=== PATIENT | female | born 1950 | race Hispanic/Latino ===

== ENCOUNTER 2017-10-08 05:39 | Day surgery (SDC) | payer MEDICARE ==
[2017-10-02 13:05] VITALS: BMI 20.5
--- NOTE | 2017-10-02 15:26 | HP ---
HISTORY OF PRESENT ILLNESS: A 67-year-old female presents to [facility] for epigastric pain, back radiation, and nausea. She has been experiencing this intermittently, not related to acti vity. CAT scan of abdomen and pelvis revealed gallstones. CBC, comprehensive metabolic profile was unremarkable with normal liver function tests. The patient reports for definitive resolution of her complaints. She is followed by Dr. Lester. PAST MEDICAL HISTORY: Hypertension, GERD, hypothyroidism, chronic kidney disease, GFR 21, stage 4, f ollowed by Dr. Weaver for chronic nephrolithiasis. PAST SURGICAL HISTORY: On 01/18/2016, echocardiogram, 65%-70% cardiac ejection fraction, normal PA p ressures, grade I diastolic dysfunction, mild aortic insufficiency and trace pulmonic insufficiency. Cardiac catheterization 01/18/2016, successful stenting of the mid LAD. The patient on 06/27/2017, by Dr. Jack, had upper endoscopy with biopsies negative for H. pylori, no evidence of sprue. On , cystoscopy, ureteral stents for nonobstructing renal lithiasis with basket extraction of sto ne fragments. On 09/08/2014, Dr. 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 PAST MEDICAL HISTORY: As noted above, chronic kidney disease, history of thoracoabdominal aneurysm r epair, hypertension, appendectomy, chronic renal disease followed by Dr. Weaver. Carpal tunnel. TOBACCO: None. ALCOHOL: None. ALLERGIES: None. MEDICATIONS: Protonix 40 mg a day, atorvastatin 20 mg at bedtime, Calcitriol daily, ferrous sulfate 325 daily, Namenda daily, Plavix daily. REVIEW OF SYSTEMS: Ten point noncontributory. PHYSICAL EXAMINATION: VITAL SIGNS: 110 pounds, 61 inches, 155/60, 90 heart rate, 98.6 degrees. LUNGS: Clear to auscultation. CARDIAC: Regular rate and rhythm without murmur or gallop. ABDOMEN: Soft, nontender except in her epigastric right upper quadrant where she has mild tenderness to deep palpation. Thoracoabdominal scar from thoracoabdominal aneurysm repair, right lower quadran t appendectomy scar, oblique lateral lower abdomen. EXTREMITIES: Unremarkable. ASSESSMENT AND PLAN: 1. Symptomatic cholelithiasis. Recommend laparoscopic video cholecystectomy. Risks and benefits ex plained. She consents. 2. Chronic kidney disease, followed by Dr. Weaver, stage 4. 3. Thoracoabdominal aneurysm repair in the past. 4. Hypertension. ADDENDUM: I spoke to Dr. Dyllan Pond regarding patient's 01/18/2016, normal echocardiogram and cardiac catheterization with a mid LAD Synergy drug-eluting stent placement and patient can be taken off Christian vix if necessary, but my plan is to leave her on Plavix. Dr. Pond stated that we could proceed with l aparoscopic cholecystectomy without further cardiac evaluation. He will see her per her routine foll owup and as needed.
[2017-10-08] MEDS ORDERED: Ketorolac Tromethamine 30 MG/ML VIAL ONE (06:19)
[2017-10-08] MEDS ORDERED: CEFAZOLIN/Water 2 GM/20 ML SYRINGE ONE (06:19)
[2017-10-08 06:38] LABS: #Eosinphils 0.3 thou/uL (0.0-0.7); #Lymphocytes 1.3 thou/uL (1.20-3.40); #Monocytes 0.6 thou/uL (0.11-0.59); %Basophils 0.4 % (0.0-1.0); %Lymphocytes 14.5 % (21.0-51.0); %Monocytes 6.1 % (0.0-10.0); Red Blood Cell (RBC) Count 3.39 mill/uL (4.20-5.40); White Blood Cell (WBC) Count 9.1 thou/uL (4.8-10.8)
[2017-10-08] MEDS ORDERED: Fentanyl 100 MCG/2 ML VIAL ONE ×2 (06:38)
[2017-10-08 06:52] LABS: Anion Gap 15 mmol/L (10-20); BUN (Urea Nitrogen) 42 mg/dL (9.8-20.1); Calc. Creatinine Clearance 14 mL/min (70-130); Calcium 9.4 mg/dL (7.8-10.44); Carbon Dioxide 25 mmol/L (23-31); Chloride 105 mmol/L (98-107); Estimated GFR-MDRD 17
[2017-10-08] MEDS ORDERED: Bupivacaine/Epinephrine 0.25% 30 ML VIAL ONE (06:53)
[2017-10-08] MEDS ORDERED: SUGAMMADEX SODIUM 200 MG/2 ML VIAL ONE (08:01)
[2017-10-08] MEDS ORDERED: PHENYLEPHRINE-NS 100 MCG/ML 10 ML SYRINGE ONE (08:59)
[2017-10-08] MEDS ORDERED: Ondansetron HCl/PF 4 MG/2 ML Vial ONE (08:59)
[2017-10-08] MEDS ORDERED: Propofol 200 MG/20 ML VIAL ONE (08:59)
[2017-10-08] MEDS ORDERED: Lidocaine 1% PF 5 ML VIAL ONE (08:59)
[2017-10-08] MEDS ORDERED: ePHEDrine/0.9% NaCl/PF SYRINGE 50 mg/10 ml ONE (08:59)
[2017-10-08] MEDS ORDERED: Dexamethasone 20 MG/5 ML VIAL ONE (08:59)
--- NOTE | 2017-10-08 09:20 | OP ---
DATE OF OPERATION: 10/08/2017 PREOPERATIVE DIAGNOSES: Chronic cholecystitis, cholelithiasis, chronic kidney disease, history of th oracoabdominal aneurysm repair. POSTOPERATIVE DIAGNOSIS: Chronic cholecystitis, cholelithiasis, chronic kidney disease, history of t horacoabdominal aneurysm repair. PROCEDURE: Laparoscopic video cholecystectomy. SURGEON: Dr. Cheo Srivastava ANESTHESIA: General. Local 0.5% Marcaine with epinephrine, 30 mL. PROCEDURE: The patient was taken to the operating room where under general anesthesia, abdomen was p repared with ChloraPrep, draped in routine fashion. Local anesthetic infiltrated into skin and subcu taneous tissue about the operative sites. Infraumbilical incision made and pneumoperitoneum to 15 mm Hg obtained with the Veress needle, replacing it with a 5 port and video laparoscope inserted. Right subxiphoid incision made and an 11 port placed. Right subcostal incision made mid clavicular anteri or axillary lines and 5 ports placed. Liver appeared to be normal grossly. Abdominal cavity was nor mal. No significant adhesions. Fundus of gallbladder grasped and reflected cephalad. Infundibulum grasped and reflected laterally. Cystic artery and duct dissected free. Critical view obtained with pericholecystic dissection 2/3 cystic plate, cystic artery and duct doubly clipped proximally and di vided and gallbladder dissected free from the liver bed obtaining good hemostasis prior to division o f final peritoneal attachments. Gallbladder and contents removed and submitted to Pathology. All sk in incisions approximated with interrupted sutures of 4-0 Monocryl after pneumoperitoneum and irrigan t evacuated, and good hemostasis ensured.
== END 2017-10-08 09:54 | disposition home or self-care (01) ==
LOC: SDC 05:39
PROVIDERS: ATTEND Specialist
PROC: 0FT44ZZ Resection of Gallbladder, Percutaneous Endoscopic Approach (ICD-10-PCS; principal; 2017-10-08)
DX: K80.10 Calculus of gallbladder with chronic cholecystitis without obstruction (principal); N18.9 Chronic kidney disease, unspecified; K21.9 Gastro-esophageal reflux disease without esophagitis; E03.9 Hypothyroidism, unspecified; I10 Essential (primary) hypertension; Z79.899 Other long term (current) drug therapy; Z90.49 Acquired absence of other specified parts of digestive tract; Z98.890 Other specified postprocedural states
CPT/HCPCS: 36415; 80048; 85025; 88304; J0131; J1100; J1885; J2001; J2405; J2704; J3010

== ENCOUNTER 2018-01-31 15:09 | Inpatient (IN) | payer MEDICARE ==
[2018-01-31 16:19] LABS: #Eosinphils 0.1 thou/uL (0.0-0.7); #Lymphocytes 1.2 thou/uL (1.20-3.40); #Monocytes 0.5 thou/uL (0.11-0.59); #Neutrophils 5.8 thou/uL (1.40-6.50); %Basophils 0.6 % (0.0-1.0); %Eosinophils 1.1 % (0.0-10.0); %Lymphocytes 15.9 % (21.0-51.0); %Monocytes 6.5 % (0.0-10.0); %Neutrophils 75.9 % (42.0-75.0); Hemoglobin 8.8 g/dL (12.0-16.0); Mean Corpuscular HGB CONC 32.9 g/dL (32.0-36.0); Mean Corpuscular Hemoglobin 30.3 pg (27.0-31.0); Mean Corpuscular Volume 92.3 fl (81.0-99.0); Mean Platelet Volume 10.8 fL (7.4-10.4); Platelet Count 170 thou/uL (130-400); RBC Distribution Width 11.9 % (11.5-14.5); Red Blood Cell (RBC) Count 2.89 mill/uL (4.20-5.40); White Blood Cell (WBC) Count 7.6 thou/uL (4.8-10.8)
[2018-01-31 16:25] LABS: ALT (SGPT) 12 U/L (8-55); AST (SGOT) 24 U/L (5-34); Alkaline Phosphatase 79 U/L (40-150); Anion Gap 17 mmol/L (10-20); BUN (Urea Nitrogen) 60 mg/dL (9.8-20.1); Bilirubin, Total 0.3 mg/dL (0.2-1.2); Calc. Creatinine Clearance 0 mL/min (70-130); Calcium 9.2 mg/dL (7.8-10.44); Carbon Dioxide 22 mmol/L (23-31); Chloride 105 mmol/L (98-107); Estimated GFR-MDRD 12; Globulin 3.4 g/dL (2.4-3.5); Glucose 83 mg/dL (80-115); Protein, Total 7.4 g/dL (6.0-8.3); Sodium 141 mmol/L (136-145)
[2018-01-31 16:30] LABS: CKMB 1.9 ng/mL (0-6.6); Troponin I 0.022 ng/mL (< 0.028)
[2018-01-31] MEDS ORDERED: Potassium Chloride 20 MEQ TAB ONE (16:58)
[2018-01-31 17:01] LABS: Bilirubin Negative (Negative); Blood, Urine Trace (Negative); Clarity CLEAR (Clear); Glucose, Urine (Dipstick) Negative (Negative); Leukocyte Negative (Negative); Nitrite Negative (Negative); Protein, Urine (Dipstick) 300 mg/dL (Neg-Trace); Specific Gravity, Urine 1.014 (1.002-1.036); Urobilinogen 0.2 mg/dL (0.2-1.0); pH, Urine 5.5 (5.0-9.0)
[2018-01-31 17:05] LABS: Bacteria/HPF None Seen HPF (None Seen); Hyaline Casts/LPF 0-3 HYALINE CAST LPF (0-3 Hyaline); Pathc Cast-AUWi Flag 0.87 (0-2.49); Squamous Epithelial 0-3 HPF (0-3); WBC/HPF 0-3 HPF (0-3)
[2018-01-31] MEDS ORDERED: hydrALAZINE 20 MG/ML VIAL ONE (17:51)
[2018-01-31] MEDS ORDERED: Amlodipine 10 MG TAB PO SCH (18:00)
[2018-01-31 18:05] LABS: Iron 22 ug/dL (50-170); Iron Binding Capacity, Total 281 mcg/dL (265-497)
[2018-01-31] MEDS ORDERED: Ondansetron HCl/PF 4 MG/2 ML Vial IVP PRN ×2 (18:35)
[2018-01-31] MEDS ORDERED: Lorazepam 1 MG TAB PO PRN (18:35)
[2018-01-31] MEDS ORDERED: traMADol HCl 50 MG TAB PO PRN (18:35)
[2018-01-31] MEDS ORDERED: Mag-Al 1200 mg/1200 mg/30 ML UDCUP PO PRN (18:35)
[2018-01-31] MEDS ORDERED: Nitroglycerin 0.4 MG TAB (25 Tab Bottle) SL PRN (18:35)
[2018-01-31] MEDS ORDERED: Calcium Carbonate 500 MG ChewTAB PO PRN (18:35)
[2018-01-31] MEDS ORDERED: Loratadine 10 MG TAB PO PRN (18:35)
[2018-01-31] MEDS ORDERED: Diabetic Tussin 200 MG/10 ML UDCUP PO PRN (18:35)
[2018-01-31] MEDS ORDERED: Senokot 8.6 MG TAB PO PRN (18:35)
[2018-01-31] MEDS ORDERED: Benzonatate 100 MG CAP PO PRN (18:35)
[2018-01-31] MEDS ORDERED: hydrALAZINE 20 MG/ML VIAL SLOW IVP PRN (18:35)
[2018-01-31] MEDS ORDERED: Bisacodyl 5 MG TAB PO PRN (18:35)
[2018-01-31] MEDS ORDERED: cloNIDine 0.1 MG TAB PO PRN (18:35)
[2018-01-31] MEDS ORDERED: Acetaminophen 325 MG TAB PO PRN (18:35)
[2018-01-31 18:51] LABS: Vitamin B12 Greater than 2000 pg/mL (211-911)
--- NOTE | 2018-01-31 21:09 | ULT ---
RENAL ULTRASOUND: 01/31/18 CLINICAL HISTORY: Acute renal insufficiency. Bilateral culver scale and doppler color flow imaging of the kidneys performed. There is symmetric size to the kidneys bilaterally. Each approximately 8 cm in length. Kidneys demonstrate increased echogen icity which may be on the basis of chronic medical renal disease. There is focal prominence of the re nal hilum. This could be on the basis of an extrarenal pelvis or peripelvic cyst. No discrete renal l esion identified. There is no significant abnormality of the urinary bladder. Bilateral ureteral jets are demonstrated. IMPRESSION: Focal prominence of the left renal hilum may relate to extrarenal pelvis or peripelvic cysts. Otherwi se, no significant hydronephrosis or discrete renal lesion. Increased echogenicity of the kidney as discussed above. POS: JESU
[2018-01-31] MEDS: Famotidine 20 MG TAB PO SCH (21:38)
[2018-01-31] MEDS: Heparin 5,000 UNITS/ML VIAL SC SCH (21:39)
[2018-01-31 21:58] LABS: Bilirubin Negative (Negative); Blood, Urine Trace (Negative); Clarity CLEAR (Clear); Glucose, Urine (Dipstick) Negative (Negative); Leukocyte Negative (Negative); Nitrite Negative (Negative); Protein, Urine (Dipstick) 100 mg/dL (Neg-Trace); Urobilinogen 0.2 mg/dL (0.2-1.0); pH, Urine 6.5 (5.0-9.0)
[2018-01-31 21:59] LABS: Bacteria/HPF None Seen HPF (None Seen); Hyaline Casts/LPF 0-3 HYALINE CAST LPF (0-3 Hyaline); Pathc Cast-AUWi Flag 0.14 (0-2.49); Squamous Epithelial None Seen HPF (0-3); WBC/HPF 0-3 HPF (0-3)
[2018-02-01 04:23] LABS: #Eosinphils 0.1 thou/uL (0.0-0.7); #Lymphocytes 1.4 thou/uL (1.20-3.40); #Monocytes 0.6 thou/uL (0.11-0.59); #Neutrophils 4.5 thou/uL (1.40-6.50); %Basophils 0.6 % (0.0-1.0); %Eosinophils 2.1 % (0.0-10.0); %Lymphocytes 20.4 % (21.0-51.0); %Monocytes 8.6 % (0.0-10.0); %Neutrophils 68.3 % (42.0-75.0); Hemoglobin 8.3 g/dL (12.0-16.0); Mean Corpuscular HGB CONC 33.5 g/dL (32.0-36.0); Mean Corpuscular Hemoglobin 30.1 pg (27.0-31.0); Mean Platelet Volume 10.4 fL (7.4-10.4); Platelet Count 159 thou/uL (130-400); RBC Distribution Width 11.7 % (11.5-14.5); Red Blood Cell (RBC) Count 2.74 mill/uL (4.20-5.40); White Blood Cell (WBC) Count 6.6 thou/uL (4.8-10.8)
[2018-02-01 05:39] LABS: Anion Gap 11 mmol/L (10-20); BUN (Urea Nitrogen) 58 mg/dL (9.8-20.1); Calc. Creatinine Clearance 12 mL/min (70-130); Calcium 8.6 mg/dL (7.8-10.44); Carbon Dioxide 24 mmol/L (23-31); Chloride 112 mmol/L (98-107); Estimated GFR-MDRD 13; Glucose 91 mg/dL (80-115); Potassium 3.3 mmol/L (3.5-5.1); Sodium 144 mmol/L (136-145)
--- NOTE | 2018-02-01 07:47 | HP ---
DATE OF ADMISSION: 01/31/2018 PRIMARY CARE PHYSICIAN: Ellen Lester in [facility]. CHIEF COMPLAINT: Abnormal labs. Sent over by her enrollment management coordinator, Dr. Weaver, for further workup. HISTORY OF PRESENTING ILLNESS: Ms. Prado is a very pleasant 67-year-old female with past medical hi story of abdominal aneurysm, status post repair, hypertension, as well as nephrolithiasis, status pos t lithotripsy and stent placement and removal, who presented to the emergency room with above-mention ed complaint. History is mainly obtained by the patient herself and her has also helped prov iding the history. Case has been discussed with the admitting ER physician as well as her nephrologi st, Dr. Weaver, over the phone. Ms. Prado reported that a few weeks ago, she noticed that she has worsening swelling of the legs. S he was seen by her primary care physician who referred her to the Nephrology. Dr. Weaver saw her week and started her on Lasix. Her swelling did get a little bit better [facility] It was noticed that her renal function has worsened over the course of the last few d ays. Her creatinine went from 2.29 in 08/2017 to 3.68 this morning. This seems to be like a gradual decline, but her GFR has dropped from 68 to 12 in the course of last 2 years. Most of the drop has happened since 11/2016. The patient herself reports poor appetite. The patient herself endorses frequent urination, weakness, tiredness, fatigue and poor appetite. She also has some abdominal pain in the right abdomen. She has history of laparoscopic cholecystectomy entered in 09/[address] Srivastava. Given history of AAA, she sought medical attention at [facility] in [place], [place]. According to her , a CT scan was done and was normal. They ac tually had a followup appointment there only yesterday. She denies any fever, chills, chest pain. S he does have some on and off chest tightness, but denies any shortness of breath or worsening edema. She denies any hematochezia or melena or hematemesis. She denies any dysuria, frequency, urgency, o r hematuria. Her labs today also have low potassium at 3.0, BUN of 60, creatinine of 3.68. Her hemoglobin is 8.8, which was 10.9 about 11 days ago. She reported that she has recently been started on folic acid and vitamin B12 by her primary care physician for this. She is otherwise hemodynamically stable and is being admitted for acute renal failure and further workup for the etiology of the same. PAST MEDICAL HISTORY: 1. History of AAA status post repair by Dr. Horn in 08/2014. 2. History of left renal stones, status post lithotripsy and stent placement and removal. 3. Gastroesophageal reflux disease. 4. Hypertension. 5. Cholecystitis status post laparoscopic cholecystectomy. PAST SURGICAL HISTORY: 1. Lithotripsy and renal stent placement and removal. 2. AAA repair. 3. Appendectomy. 4. Laparoscopic cholecystectomy. ALLERGIES: No known medication allergies. SOCIAL HISTORY: She is and lives with the family. No history of drug, tobacco or alcohol ab use. FAMILY HISTORY: Significant for massive MS in her mother who in her 60s. Father also of M I at the age of 49. REVIEW OF SYSTEMS: The following complete review of systems was negative, unless otherwise mentioned in the HPI or below: Constitutional: Weight loss or gain, ability to conduct usual activities. Sk in: Rash, itching. Eyes: Double vision, pain. ENT/Mouth: Nose bleeding, neck stiffness, pain, te nderness. Cardiovascular: Palpitations, dyspnea on exertion, orthopnea. Respiratory: Shortness of breath, wheezing, cough, hemoptysis, fever or night sweats. Gastrointestinal: Poor appetite, abdom inal pain, heartburn, nausea, vomiting, constipation, or diarrhea. Genitourinary: Urgency, frequenc y, dysuria, nocturia. Musculoskeletal: Pain, swelling. Neurologic/Psychiatric: Anxiety, depressio n. Allergy/Immunologic: Skin rash, bleeding tendency. CURRENT HOME MEDICATIONS: Include Lasix 40 mg daily, ferrous sulfate 325 mg b.i.d., Namenda 28 mg da jennyfer, Plavix 75 mg daily, amlodipine 10 mg daily, memantine unknown dose, Protonix 40 mg daily, atorva statin 20 mg daily, and calcitriol 0.25 mcg Sunday, Sunday, and Sunday. LABORATORY DATA: CBC shows WBC normal at 7.6, but 75% neutrophils. Hemoglobin 8.8, hematocrit 26.7, normal MCV, MCH and MCHC and RDW. Serum chemistry shows potassium 3, bicarbonate 22, BUN 60, creati nine 3.68 with estimated GFR of 12. Cardiac enzymes unremarkable. PHYSICAL EXAMINATION: VITAL SIGNS: Upon presentation, blood pressure 177/75, pulse of 78, respirations 16, saturating 96% on room air, temperature 97.7. GENERAL: She looks very pale, weak and tired, otherwise no acute distress. Awake, alert, oriented x 3. HEENT: Mucous membrane is moist and pink. No oropharyngeal exudate or erythema. Head is normocepha lic, atraumatic. Pupils equal, reactive to light and accommodation. Extraocular movement equal. NECK: Supple without any lymphadenopathy, JVD or bruit. CHEST: Clear to auscultation without any wheezing, rales or rhonchi. Rhythm is regular without any murmur, rubs or gallop. ABDOMEN: She is mildly tender to palpation diffusely in the abdomen. She has no guarding, rebound o r rigidity. EXTREMITIES: Show trace pitting edema bilaterally, lower extremities extending up to her mid-calf. NEUROLOGIC: Nonfocal. SKIN: Free of any rashes or bruises. I feel warm and dry to touch. PSYCHIATRIC: Normal affect. IMPRESSION AND PLAN: 1. Acute on chronic kidney disease. The patient has acute worsening of her symptoms. Upon discussi on with the enrollment management coordinator, Dr. Weaver, it was found out that recently her ANCA antibody was positive. She would need further workup. It might be hypertensive nephropathy and chronic kidney disease hima porfirio any other autoimmune diseases versus acute renal insufficiency secondary to diuretics. At this t james, we will hold the diuretics and give her some of the volume back and admit her to medical floor f or further workup. Nephrology will be consulted. We will obtain a renal ultrasound and a urinalysis . Further management per Nephrology recommendations. She may or may not need a renal biopsy. The p atient does not take any pain medications at home. She is also not on any aspirin either. 2. Uncontrolled hypertension. The patient's blood pressure has shot up to systolic 200. We will st art her on p.r.n. antihypertensives and resume her home medication of amlodipine. Further medication as per her response. 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 We will avoid diuretics becaus e of acute kidney insufficiency at this time. 3. History of nephrolithiasis. The patient's symptoms are not consistent with a renal stone. [facility], renal ultrasound has been ordered. 4. History of abdominal aortic aneurysm. The patient recently had a followup at [facility] in [place] and her CT scan was negative for any reoccurrence or any new aneurysms. 5. Deep venous thrombosis and gastrointestinal prophylaxis. 6. Chronic anemia, most likely iron deficiency versus anemia of chronic kidney disease. We will aristeo ck her iron indices as well as vitamin B12 and folic acid levels. If any of these is low, we will st art supplementing. Iron will be supplemented, the IV form if necessary. 7. Code status: FULL CODE. Discussed with the patient. 8. Add p.r.n. medication orders and continue supportive care. 9. Hypokalemia. She has received 20 mg of potassium in the emergency room, and we will recheck in t he morning. This most likely secondary to her use of Lasix. DISPOSITION: Ms. Prado is currently being admitted to medical floor for acute on chronic renal insu fficiency. Further management will depend upon her clinical course. Estimated length of stay at [facility] time is at least 2-3 midnight.
[2018-02-01] MEDS: Famotidine 20 MG TAB PO SCH (08:31)
[2018-02-01] MEDS: Heparin 5,000 UNITS/ML VIAL SC SCH (08:32)
[2018-02-01] MEDS ORDERED: Prevnar 13-Val Conj/PF 0.5 ML SYRINGE IM ONE (09:00)
[2018-02-01] MEDS ORDERED: Amlodipine 10 MG TAB PO SCH (09:00)
[2018-02-01] MEDS ORDERED: IRON SUCROSE COMPLEX 100 MG/5 ML SLOW IVP SCH (09:30)
[2018-02-01] MEDS ORDERED: Epoetin (ESRD) 20,000 UNITS/ML SC SCH (09:30)
[2018-02-01] MEDS ORDERED: Calcitriol 0.25 MCG CAP PO SCH (09:45)
[2018-02-01] MEDS ORDERED: Sodium Ferric Gluconate 250 MG, Admixture Fee 1 EACH in Sodium Chloride 0.9% 250 ML 250 ML IVPB SCH (09:45)
[2018-02-01 11:24] VITALS: BP 166/73; TEMP 98.5
[2018-02-01 11:46] LABS: INR-International Normal Ratio 1.1; Prothrombin Time 14.7 SEC (12.0-14.7)
[2018-02-01 11:47] LABS: PTT 40.6 SEC (22.9-36.1)
--- NOTE | 2018-02-01 12:08 | CON ---
DATE OF CONSULTATION: 02/01/2018 REASON FOR CONSULTATION: Proteinuria and stage 5 chronic kidney disease. HISTORY OF PRESENT ILLNESS: This is a 67-year-old female with a history of pruritic rash and a risin g creatinine. Her creatinine was normal a few years ago and has increased. The patient says swellin g is controlled. Creatinine has increased from 2 in 11/23 last year to 3.5 today. An ultrasound jorge ws scarring. The patient also has had a pruritic rash. The patient denies fever, chills, nausea, vo miting or chest pain. PAST MEDICAL AND SURGICAL HISTORY: Significant for hypertension, pruritic rash, joint pains, history of AAA repair, history of kidney stones, stent placement, hypertension, GERD, cholecystitis, appende ctomy. SOCIAL HISTORY: No tobacco, alcohol or drug use. FAMILY HISTORY: Negative for ESRD. REVIEW OF SYSTEMS: A 15-point review of systems was performed and was negative except for positives noted above. GENERAL: Weakness-. HEAD: Headache-. NECK: No swelling or lumps. NOSE: No epistaxis or discharge. EYES: No diplopia or pain. RESPIRATORY: Dyspnea-. CARDIOVASCULAR: Chest pain-. GASTROINTESTINAL: Nausea-. 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 MUSCULOSKELETAL: No joint pain. NEUROPSYCHIATIC SYSTEMS: No suicidal ideation. No ideation. SKIN: Denies any rash or ulcer. CONSTITUTIONAL: No fever or chills. HOME MEDICATIONS: List reviewed. HOSPITAL MEDICATIONS: Reviewed. ALLERGY: Reviewed. PHYSICAL EXAMINATION: GENERAL: Patient is awake, alert. VITAL SIGNS: Afebrile, pulse 75, breathing at 16, blood pressure was 148/82. GENERAL APPEARANCE AND MENTAL STATUS: Fair. HEAD/NECK: Normocephalic, atraumatic. EYES: EOMI. No deformity. EARS: Clear. No ulcers. NOSE: Intact. No lesions. MOUTH: Clear. No discharge. THROAT: Clear. No exudate. LUNGS: Clear. No crackles. CARDIAC: S1, S2. No rub. ABDOMEN: Benign. BS+. GENITALIA/RECTUM: Baig absent. BACK/EXTREMITIES: Edema 0+ Ulcer-. NEUROLOGICAL: Alert and motor intact. SKIN: Rash- Bruise- LYMPHATICS: Edema- Ulcer-. LABORATORY DATA: Show potassium 3.3, creatinine 3.5. ASSESSMENT AND RECOMMENDATIONS: 1. Acute kidney injury with chronic kidney disease stage 5, most likely due to a glomerular etiology . I will order a random urine protein creatinine ratio and a serum and urine protein electrophoresis . The patient will need a kidney biopsy. I have discussed the risks versus benefits of a kidney bio psy and they have consented. We will consult Radiology to perform a kidney biopsy. 2. Proteinuria. 3. Anemia. Workup is pending. Overall, prognosis is poor.
[2018-02-01 14:08] LABS: ANA Symphony (Qualitative) Negative (Negative); dsDNA IgG Antibody Less than 0.5 IU/mL (<10 Negative)
[2018-02-01 15:11] LABS: Creatinine, Urine 47.32 mg/dL (47-110)
[2018-02-01] MEDS ORDERED: FERROUS SULFATE PO SCH (21:00)
[2018-02-01] MEDS ORDERED: Ferrous Sulfate 325 MG TAB PO SCH (21:00)
--- NOTE | 2018-02-01 23:16 | DIS ---
DATE OF ADMISSION: 01/31/2018 DATE OF DISCHARGE: 02/01/2018 CONDITION AT THE TIME OF DISCHARGE: Stable and improved. DISCHARGE DISPOSITION: Home. PRIMARY CARE PHYSICIAN: Ellen Lester PA-C. PRIMARY SNAKER DRIVING HORSES: Dr. Weaver. DISCHARGE DIAGNOSES: 1. Acute on chronic kidney disease of unclear etiology. 2. Dementia. 3. History of abdominal aortic aneurysm status post repair in 2013. 4. History of nephrolithiasis, status post stent placement and stone removal. DISCHARGE MEDICATIONS: Remain the same as the admission medication except for the Plavix, which is i nstructed to stop for 5 to 10 days for outpatient renal biopsy. CONSULTATIONS: Inhouse Nephrology, Dr. Meneses. PROCEDURES: Renal ultrasound which is unremarkable except increased echogenicity in the left renal h ilum, which may relate to extrarenal pelvis or peripelvic cyst. HISTORY OF PRESENTING ILLNESS: Ms. Prado was admitted as a direct admit from [facility] for abnormal labs. She has known history of chronic kidney disease and was seen in the outpatient settin g for increased swelling and was started on Lasix a few days ago. For the followup appointment, when she presented she was found to have acute worsening of the kidney function with creatinine of 3.68. She was admitted for further evaluation and stabilization. She was otherwise hemodynamically stable . Please see admission history and physical for further details. HOSPITAL COURSE: Nephrology was consulted and renal ultrasound was done. Various immunological stud ies were sent including the ankle panel as well as FAVIO panel and a urine and serum protein electropho resis was also ordered. The patient's Lasix was held and was stopped and she was resuscitated with a little bit of fluid. She tolerated this very well and by the time of discharge. Her creatinine has improved a little bit to 3.55. She needs a renal biopsy which [facility] She was found to be anemic with a hemoglobin of 8.8 and serum iron indices and B12, folic acid levels were checked. She was iron deficient. She received IV iron prior to discharge as well as one dose of Epogen as this is most likely anemia of chronic kidney disease. She was seen and examined prior to discharge and is stable. PHYSICAL EXAMINATION: This morning include; VITAL SIGNS: Temperature 98.5, pulse of 70, respirations 20, saturating 96% on room air, blood press ure 166/73, no acute distress, awake, alert, and oriented x3. CHEST: Clear to auscultation bilaterally. HEART: Rate and rhythm is regular. NEUROLOGICAL: Nonfocal. At this time, I have instructed her multiple times that she is to hold her Plavix for outpatient reyna l biopsy. This will be scheduled by Dr. Weaver's office. The patient is instructed to follow up wi th them on Sunday as this is a Sunday, today. She will get her BMP checked prior to her visit with Antonietta Weaver and they will set her up with the date of the renal biopsy and follow up the lab results i n the outpatient setting. All questions were answered and discharge plan was discussed with the patient who verbalized understa nding. Discharge plan was discussed with Dr. Meneses, who also agreed with the plan. Total time spent in the discharge of this patient 32 minutes.
[2018-02-02] MEDS ORDERED: Famotidine 20 MG TAB PO SCH (09:00)
[2018-02-02] MEDS ORDERED: Cyanocobalamin (Vitamin B-12) 1,000 MCG TAB PO SCH (09:00)
[2018-02-02] MEDS ORDERED: MEMANTINE HCL PO SCH (09:00)
[2018-02-02] MEDS ORDERED: Atorvastatin Calcium 20 MG TAB PO SCH (09:00)
[2018-02-04] MEDS ORDERED: Calcitriol 0.25 MCG CAP PO SCH ×2 (09:00)
[2018-02-05 14:21] LABS: Albumin 3.1 g/dL (2.9-4.4); Alpha 1 0.3 g/dL (0.0-0.4); Alpha 2 0.9 g/dL (0.4-1.0); Gamma 0.8 g/dL (0.4-1.8); M-Spike Not Observed g/dL (Not Observed)
[2018-02-06 12:15] LABS: Protein, Urine 165.2 mg/dL (Not Estab.)
== END 2018-02-01 16:25 | disposition home or self-care (01) | DRG 683 ==
LOC: ERS 15:09 → T4-A 17:00
PROVIDERS: ADMIT Internal Medicine; ATTEND Internal Medicine
DX: N17.9 Acute kidney failure, unspecified (principal); I12.0 Hypertensive chronic kidney disease with stage 5 chronic kidney disease or end stage renal disease; F03.90 Unspecified dementia, unspecified severity, without behavioral disturbance, psychotic disturbance, mood disturbance, and anxiety; E87.6 Hypokalemia; D50.9 Iron deficiency anemia, unspecified; N18.5 Chronic kidney disease, stage 5
CPT/HCPCS: 36415; 76770; 80048; 80053; 81003; 81015; 82553; 82570; 82607; 82746; 83520; 83540; 83550; 84156; 84165; 84166; 84484; 85025; 85610; 85730; 86038; 86225; 86256; 90471; 90670; 93005; 96361; 96374; G0009; J0360; J1644; J2916; J7050; Q4081

== ENCOUNTER 2018-02-25 08:56 | Day surgery (SDC) | payer MEDICARE ==
[2018-02-11 13:28] VITALS: BMI 17.5
[2018-02-25 09:58] VITALS: BP 172/73; TEMP 97.8
== END 2018-02-25 11:15 | disposition home or self-care (01) ==
LOC: CT 08:56
PROVIDERS: ATTEND Internal Medicine Nephrology
DX: I12.9 Hypertensive chronic kidney disease with stage 1 through stage 4 chronic kidney disease, or unspecified chronic kidney disease (principal); N18.9 Chronic kidney disease, unspecified; N17.9 Acute kidney failure, unspecified; Z79.02 Long term (current) use of antithrombotics/antiplatelets; Z79.899 Other long term (current) drug therapy; Z53.9 Procedure and treatment not carried out, unspecified reason
CPT/HCPCS: 36415; 80048; 83970; 84100; 85027

== ENCOUNTER 2018-04-08 08:34 | Day surgery (SDC) | payer MEDICARE ==
[~2018-04-08 08:34] MED LIST: Prevnar 13-Val Conj/PF 0.5 ML SYRINGE IM ONE
[2018-04-08 09:08] LABS: Hemoglobin 8.8 g/dL (12.0-16.0); Mean Corpuscular HGB CONC 32.5 g/dL (32.0-36.0); Mean Corpuscular Hemoglobin 30.3 pg (27.0-31.0); Mean Corpuscular Volume 93.2 fl (81.0-99.0); Platelet Count 113 thou/uL (130-400); RBC Distribution Width 12.7 % (11.5-14.5); Red Blood Cell (RBC) Count 2.91 mill/uL (4.20-5.40); White Blood Cell (WBC) Count 10.5 thou/uL (4.8-10.8)
[2018-04-08 09:10] LABS: INR-International Normal Ratio 1.2; PTT 25.9 SEC (22.9-36.1); Prothrombin Time 15.1 SEC (12.0-14.7)
[2018-04-08 10:24] VITALS: BP 220/90; TEMP 97.4
[2018-04-08] MEDS ORDERED: Lorazepam 1 MG TAB ONE (10:39)
== END 2018-04-08 11:50 | disposition home or self-care (01) ==
LOC: CT 08:34
PROVIDERS: ATTEND Internal Medicine Nephrology
DX: I12.9 Hypertensive chronic kidney disease with stage 1 through stage 4 chronic kidney disease, or unspecified chronic kidney disease (principal); N18.4 Chronic kidney disease, stage 4 (severe); R80.9 Proteinuria, unspecified; F03.90 Unspecified dementia, unspecified severity, without behavioral disturbance, psychotic disturbance, mood disturbance, and anxiety; Z53.9 Procedure and treatment not carried out, unspecified reason
CPT/HCPCS: 85027; 85610; 85730

== ENCOUNTER 2018-04-29 08:03 | Day surgery (SDC) | payer MEDICARE ==
[2018-04-29] MEDS ORDERED: diphenhydrAMINE 25 MG CAP PO PRN (09:03)
[2018-04-29] MEDS ORDERED: Acetaminophen 500 MG TAB PO PRN (09:04)
[2018-04-29] MEDS ORDERED: diphenhydrAMINE 50 MG/ML VIAL IVP PRN (09:04)
[2018-04-29] MEDS ORDERED: Acetaminophen 500 MG TAB PO SCH (09:15)
[2018-04-29] MEDS ORDERED: SODIUM CHLORIDE 0.9% IVPB SCH ×2 (09:15)
[2018-04-29] MEDS ORDERED: RITUXIMAB IVPB SCH ×2 (09:15)
[2018-04-29] MEDS ORDERED: diphenhydrAMINE 50 MG/ML VIAL IVP SCH (09:15)
[2018-04-29] MEDS ORDERED: methylPREDNISolone Sod Succ/PF 125 MG/2 ML VIAL IVP SCH (09:15)
[2018-04-29 09:34] LABS: #Lymphocytes 0.9 thou/uL (1.20-3.40); #Monocytes 0.6 thou/uL (0.11-0.59); #Neutrophils 8.9 thou/uL (1.40-6.50); %Basophils 0.4 % (0.0-1.0); %Eosinophils 0.2 % (0.0-10.0); %Monocytes 5.5 % (0.0-10.0); %Neutrophils 84.8 % (42.0-75.0); Hemoglobin 8.3 g/dL (12.0-16.0); Mean Corpuscular HGB CONC 33.7 g/dL (32.0-36.0); Mean Corpuscular Hemoglobin 30.9 pg (27.0-31.0); Mean Corpuscular Volume 91.5 fL (78.0-98.0); Mean Platelet Volume 9.7 fL (7.4-10.4); Platelet Count 124 thou/uL (130-400); RBC Distribution Width 13.3 % (11.5-14.5); Red Blood Cell (RBC) Count 2.69 mill/uL (4.20-5.40); White Blood Cell (WBC) Count 10.5 thou/uL (4.8-10.8)
[2018-04-29 09:49] LABS: Anion Gap 17 mmol/L (10-20); BUN (Urea Nitrogen) 120 mg/dL (9.8-20.1); Calc. Creatinine Clearance 8 mL/min (70-130); Calcium 7.2 mg/dL (7.8-10.44); Carbon Dioxide 24 mmol/L (23-31); Chloride 105 mmol/L (98-107); Estimated GFR-MDRD 7; Glucose 92 mg/dL (80-115); Potassium 3.2 mmol/L (3.5-5.1); Sodium 143 mmol/L (136-145)
[2018-04-29 10:06] VITALS: BP 190/84; TEMP 98
== END 2018-04-29 13:25 | disposition home or self-care (01) ==
LOC: ONC/OP 08:03
PROVIDERS: ATTEND Internal Medicine Rheumatology
DX: I77.6 Arteritis, unspecified (principal); N18.5 Chronic kidney disease, stage 5; I12.0 Hypertensive chronic kidney disease with stage 5 chronic kidney disease or end stage renal disease; D63.1 Anemia in chronic kidney disease; Z79.1 Long term (current) use of non-steroidal anti-inflammatories (NSAID)
CPT/HCPCS: 36415; 80048; 85025; 96375; 96413; 96415; J1200; J2930; J7050; J9310

== ENCOUNTER 2018-05-13 08:56 | Day surgery (SDC) | payer MEDICARE ==
[2018-05-13] MEDS ORDERED: Acetaminophen 500 MG TAB PO PRN (09:40)
[2018-05-13] MEDS ORDERED: diphenhydrAMINE 50 MG/ML VIAL IVP PRN (09:40)
[2018-05-13] MEDS ORDERED: diphenhydrAMINE 25 MG CAP PO PRN (09:40)
[2018-05-13] MEDS ORDERED: SODIUM CHLORIDE 0.9% IVPB SCH (09:45)
[2018-05-13] MEDS ORDERED: Sodium Chloride 0.9% 1,000 ML IV SCH (09:45)
[2018-05-13] MEDS ORDERED: methylPREDNISolone Sod Succ/PF 125 MG/2 ML VIAL IVP SCH (09:45)
[2018-05-13] MEDS ORDERED: Acetaminophen 500 MG TAB PO SCH (09:45)
[2018-05-13] MEDS ORDERED: RITUXIMAB IVPB SCH (09:45)
[2018-05-13] MEDS ORDERED: diphenhydrAMINE 50 MG/ML VIAL IVP SCH (09:45)
[2018-05-13 11:30] VITALS: BP 178/80; TEMP 98.3
== END 2018-05-13 13:02 | disposition home or self-care (01) ==
LOC: ONC/OP 08:56
PROVIDERS: ATTEND Internal Medicine Rheumatology
DX: I77.6 Arteritis, unspecified (principal)
CPT/HCPCS: 96375; 96413; 96415; J1200; J2930; J7050; J9310

== ENCOUNTER 2018-05-27 15:52 | Inpatient (IN) | payer MEDICARE ==
[2018-05-27 16:32] LABS: #Lymphocytes 0.5 thou/uL (1.20-3.40); #Monocytes 0.3 thou/uL (0.11-0.59); %Eosinophils 0.3 % (0.0-10.0); %Lymphocytes 8.2 % (21.0-51.0); %Monocytes 4.7 % (0.0-10.0); %Neutrophils 86.7 % (42.0-75.0); Hemoglobin 8.3 g/dL (12.0-16.0); Mean Corpuscular HGB CONC 34.6 g/dL (32.0-36.0); Mean Corpuscular Volume 92.5 fL (78.0-98.0); Mean Platelet Volume 10.1 fL (7.4-10.4); Platelet Count 93 thou/uL (130-400); RBC Distribution Width 13.8 % (11.5-14.5); White Blood Cell (WBC) Count 5.8 thou/uL (4.8-10.8)
[2018-05-27 16:45] LABS: ALT (SGPT) 18 U/L (8-55); AST (SGOT) 16 U/L (5-34); Albumin 3.5 g/dL (3.4-4.8); Alkaline Phosphatase 66 U/L (40-150); Anion Gap 20 mmol/L (10-20); BUN (Urea Nitrogen) 117 mg/dL (9.8-20.1); Bilirubin, Total 0.3 mg/dL (0.2-1.2); Calc. Creatinine Clearance 0 mL/min (70-130); Carbon Dioxide 22 mmol/L (23-31); Chloride 106 mmol/L (98-107); Estimated GFR-MDRD 8; Globulin 2.4 g/dL (2.4-3.5); Glucose 181 mg/dL (80-115); Protein, Total 5.9 g/dL (6.0-8.3); Sodium 145 mmol/L (136-145)
[2018-05-27] MEDS ORDERED: CEFAZOLIN/Water 2 GM/20 ML SYRINGE SLOW IVP SCH (19:15)
[2018-05-27 21:02] LABS: Bilirubin Negative (Negative); Blood, Urine Negative (Negative); Clarity CLEAR (Clear); Glucose, Urine (Dipstick) Negative (Negative); Leukocyte Negative (Negative); Nitrite Negative (Negative); Protein, Urine (Dipstick) 100 mg/dL (Neg-Trace); Specific Gravity, Urine 1.011 (1.002-1.036); Urobilinogen 0.2 mg/dL (0.2-1.0); pH, Urine 5.5 (5.0-9.0)
[2018-05-27 21:04] LABS: Bacteria/HPF None Seen HPF (None Seen); Hyaline Casts/LPF 0-3 HYALINE CAST LPF (0-3 Hyaline); Squamous Epithelial 0-3 HPF (0-3); WBC/HPF 0-3 HPF (0-3)
--- NOTE | 2018-05-27 21:12 | ULT ---
PREDIALYSIS ACCESS DUPLEX EXAMINATION: INDICATIONS: End stage renal disease. TECHNIQUE: Pond-scale, color Doppler, and duplex ultrasound images were obtained of the arterial structures and venous structures of both upper extremities for a pre-dialysis duplex exam. FINDINGS: RIGHT UPPER EXTREMITY BRACHIAL ARTERY: 4.4 mm RADIAL ARTERY: 2.8 mm ULNAR ARTERY: 2.5 mm CEPHALIC VEIN Proximal Arm: 1.6 mm Mid Arm: 1.9 mm Distal Arm: 2.1 mm Antecubital Fossa: 2.4 mm Proximal Forearm: 1.7 mm Mid Forearm: 2.0 mm Distal Forearm: 2.1 mm BASILIC VEIN Proximal Arm: 1.7 mm Mid Arm: 1.9 mm Distal Arm: 2.1 mm Antecubital Fossa: 1.7 mm Proximal Forearm: 1.1 mm Mid Forearm: 1.8 mm Distal Forearm: 1.2 mm LEFT UPPER EXTREMITY BRACHIAL ARTERY: 3.9 mm RADIAL ARTERY: 2.0 mm ULNAR ARTERY: 2.4 mm CEPHALIC VEIN Proximal Arm: 1.2 mm Mid Arm: 1.5 mm Distal Arm: 0.9 mm Antecubital Fossa: 1.1 mm Proximal Forearm: 1.7 mm Mid Forearm: 1.3 mm Distal Forearm: 1.0 mm BASILIC VEIN Proximal Arm: 2.7 mm Mid Arm: 2.2 mm Distal Arm: 2.3 mm Antecubital Fossa: 2.3 mm Proximal Forearm: 1.3 mm Mid Forearm: 1.1 mm Distal Forearm: 1.2 mm Appropriate flow is seen within the internal jugular veins and subclavian veins. IMPRESSION: Predialysis duplex exam as above. POS: LUIS ENRIQUE
[2018-05-27] MEDS ORDERED: Acetaminophen 325 MG TAB PO PRN (23:30)
--- NOTE | 2018-05-28 00:29 | HP ---
HISTORY OF PRESENT ILLNESS: This is a 68-year-old female who reports to the emergency room for compl aints of malaise. White count is 5, hemoglobin 8.3, sodium 145, potassium 3.0, BUN 27, creatinine 5. 27, GFR 8. The patient is followed by Dr. Meneses has asked me to place hemodialysis catheter and a fis melly. The patient has had blood draws from her left antecubital area. Ultrasound vein mapping was o rdered and pending. She is right-handed. MEDICATIONS AT HOME: Prednisone 40 mg a day, Protonix daily, Namenda daily, levothyroxine 25 mcg a d ay, Lasix 20 mg a day, ferrous sulfate 325 mg b.i.d., Plavix 75 daily, carvedilol 12.5 mg b.i.d., alfie citriol 0.25 mcg daily, Lipitor 20 mg a day, aspirin 81 mg a day. PAST SURGICAL HISTORY: 1. 09/08/2014, Dr. Tim Horn thoracoabdominal approach suprarenal abdominal aortic aneurysm with a Hemashield graft repair. 2. 12/17/2015, cystoscopy for treatment of left nonobstructing renal lithiasis. 3. Laparoscopic cholecystectomy performed by me 10/08/2017. PAST MEDICAL HISTORY: Hypertension, gastroesophageal reflux disease, hypothyroidism, chronic kidney disease, progressing end-stage renal disease, coronary artery disease, status post LAD stenting two y ears ago, Plavix and aspirin. Echocardiogram 12/2015 65%-70% ejection fraction. Upper endoscopy, lo wer endoscopy by Dr. Jack. REVIEW OF SYSTEMS: Ten point noncontributory. PHYSICAL EXAMINATION: VITAL SIGNS: 120/76, respiratory rate 18. HEAD, EARS, EYES, NOSE AND THROAT: Unremarkable. LUNGS: Clear to auscultation. CARDIAC: Regular rate and rhythm without murmur or gallop. ABDOMEN: Soft, plus bowel sounds. Scars per above. EXTREMITIES: Palpable radial pulses. Bandage left ankle area, reflect a recent blood draw. ASSESSMENT AND PLAN: End-stage renal disease. We will plan hemodialysis catheter placement, possibl e central line. We will plan placement of a primary fistula in the near future.
[2018-05-28] MEDS ORDERED: Lorazepam 1 MG TAB PO PRN (08:54)
[2018-05-28] MEDS ORDERED: Nitroglycerin 0.4 MG TAB (25 Tab Bottle) SL PRN (08:54)
[2018-05-28] MEDS ORDERED: Loratadine 10 MG TAB PO PRN (08:54)
[2018-05-28] MEDS ORDERED: hydrALAZINE 20 MG/ML VIAL SLOW IVP PRN (08:54)
[2018-05-28] MEDS ORDERED: Ondansetron HCl/PF 4 MG/2 ML Vial IVP PRN ×2 (08:54→20:15)
[2018-05-28] MEDS ORDERED: Bisacodyl 5 MG TAB PO PRN (08:54)
[2018-05-28] MEDS ORDERED: Benzonatate 100 MG CAP PO PRN (08:54)
[2018-05-28] MEDS ORDERED: Calcium Carbonate 500 MG ChewTAB PO PRN (08:54)
[2018-05-28] MEDS ORDERED: Mag-Al 1200 mg/1200 mg/30 ML UDCUP PO PRN (08:54)
[2018-05-28] MEDS ORDERED: cloNIDine 0.1 MG TAB PO PRN (08:54)
[2018-05-28] MEDS ORDERED: Senokot 8.6 MG TAB PO PRN (08:54)
[2018-05-28] MEDS ORDERED: Diabetic Tussin 200 MG/10 ML UDCUP PO PRN (08:54)
[2018-05-28] MEDS ORDERED: Famotidine 20 MG TAB PO SCH (09:00)
[2018-05-28] MEDS ORDERED: Torsemide 20 MG TAB PO SCH (09:00)
[2018-05-28] MEDS ORDERED: Atorvastatin Calcium 20 MG TAB PO SCH (09:00)
[2018-05-28] MEDS ORDERED: Sodium Chloride 0.65% Nasal 44 ML BOT EA NARE PRN (09:36)
[2018-05-28] MEDS: Heparin 5,000 UNITS/ML VIAL SC SCH ×2 (09:43→21:08)
[2018-05-28] MEDS ORDERED: Carvedilol 25 MG TAB PO SCH (09:45)
[2018-05-28] MEDS ORDERED: Ferrous Sulfate 325 MG TAB PO SCH ×2 (09:45→21:00)
[2018-05-28] MEDS ORDERED: Epoetin (ESRD) 20,000 UNITS/ML SC SCH (10:00)
[2018-05-28] MEDS ORDERED: Lidocaine 1% PF 5 ML VIAL ONE (10:03)
[2018-05-28] MEDS ORDERED: Ondansetron HCl/PF 4 MG/2 ML Vial ONE (10:03)
[2018-05-28] MEDS ORDERED: Heparin 10,000 UNITS/ 10 ML VIAL ONE (10:03)
[2018-05-28] MEDS ORDERED: ePHEDrine/0.9% NaCl/PF SYRINGE 50 mg/10 ml ONE (10:03)
[2018-05-28] MEDS ORDERED: PROPOFOL 200 MG/20 ML VIAL ONE (10:03)
[2018-05-28] MEDS ORDERED: PHENYLEPHRINE-NS 100 MCG/ML 10 ML SYRINGE ONE (10:03)
[2018-05-28] MEDS ORDERED: Tuberculin PPD 0.1 ML VIAL I-DERMAL SCH (10:30)
[2018-05-28] MEDS: NIFEdipine XL 60 MG TAB PO SCH (10:30)
--- NOTE | 2018-05-28 10:44 | PRG ---
DATE OF SERVICE: 05/28/2018 Ms. Prado is doing well today. Ultrasound vein mapping revealed poor veins, but right arm is superi or. We will plan right arm primary fistula or dialysis graft and placement of hemodialysis catheter, possible central line. Risks and benefits discussed. We will plan this later today.
[2018-05-28] MEDS ORDERED: predniSONE 20 MG TAB PO SCH (10:45)
--- NOTE | 2018-05-28 11:42 | HP ---
PRIMARY CARE PHYSICIAN: Ellen Lester PA-C CHIEF COMPLAINT: Needs hemodialysis starting. HISTORY OF PRESENT ILLNESS: Ms. Prado is a 68-year-old female with new diagnosis of chronic kidney disease, who was sent to the emergency room by her senior quality assurance engineer to get the hemodialysis started. His tory is mainly obtained by the patient and her present in the room as well as from her grandd aughter, Ms. Burton. Electronic medical records have been reviewed. The patient was last admitted t o our facility in 01/2018. She was diagnosed with chronic kidney disease at that time and workup was pending at the time of her discharge with renal biopsy planned as an outpatient. I discussed this with Dr. Weaver and looked at her electronic medical records. She did have positiv e ANCA. She had positive antiproteinase 3 antibodies. Kidney biopsy could not be performed for some reason. She has since then seen Rheumatology, Dr. Fontaine and has been started on rituximab infusions . She has finished 2 infusion and has also been on high dose steroids. She was on 40 mg of predniso ne a day, which was recently changed to 20 mg daily because of "puffiness." She has a progression of the chronic kidney disease and has been feeling poorly, so was sent to the ER by senior quality assurance engineer, Dr. Lin hernandez to get the dialysis started. She has more rituximab infusions planned for the near future. Other than that, the patient denies any symptoms whatsoever. She states that she feels actually quit e well. PAST MEDICAL HISTORY: 1. Chronic kidney disease, now progressed to end-stage renal disease, requiring hemodialysis. 2. 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 3. Mild dementia. 4. History of nephrolithiasis, status post stent removal and stone removal. 5. History of AAA status post repair in 2013. PAST SURGICAL HISTORY: 1. Lithotripsy and renal stent placement and removal. 2. AAA repair. 3. Appendectomy. 4. Laparoscopic cholecystectomy. ALLERGIES: No known medication allergies. SOCIAL HISTORY: She is and lives with her . No history of drug, tobacco, or alcohol abuse. FAMILY HISTORY: Significant for severe ME in her mother, who in her 60s. Father also of M I at the age of 49. CODE STATUS: FULL CODE. Discussed with the patient. CURRENT MEDICATIONS: Prednisone 20 mg daily, rituximab infusion per Dr. Fontaine, levothyroxine 25 mcg daily, Namenda XR one tablet daily, Protonix 40 mg daily, Coreg 25 mg p.o. b.i.d., ferrous sulfate 32 5 mg p.o. b.i.d., Lipitor 20 mg daily, Calcitriol 0.25 mcg Sunday, Sunday, and Sunday, Demadex 20 mg p.o. b.i.d., and nifedipine 60 mg daily. REVIEW OF SYSTEMS: A 12-point review of systems is done, it is negative except for those mentioned i n the history and physical. The patient does report cramping of her hands and generalized weakness. LABORATORY DATA: CBC shows hemoglobin of 8.3, hematocrit 24, and platelet count 93, neutrophils 86%. Serum chemistries done yesterday in the ER shows potassium 3.0, BUN 117, creatinine 5.27, blood sug ar 181. Urinalysis: Protein 100, otherwise unremarkable. Marking ultrasound has been done to facil itate hemodialysis catheter placement. PHYSICAL EXAMINATION: VITAL SIGNS: Most recent vital signs, temperature 98.6, pulse of 85, respirations 18, saturating 94% on room air, and blood pressure 162/79. GENERAL: No acute distress, awake, alert, oriented x3. HEENT: Mucous membrane is moist and pink. No oropharyngeal exudate or erythema. Head is normocepha lic, atraumatic. Pupils equal, reactive to light and accommodation. Extraocular movement intact. NECK: Supple without any lymphadenopathy, JVD or bruit. CHEST: Clear to auscultation without any wheezing, rales, or rhonchi. Rhythm is regular without any murmur, rubs or gallops. ABDOMEN: Soft, nontender, nondistended with positive bowel sounds. EXTREMITIES: Free of any cyanosis, clubbing, or edema. NEUROLOGIC: Nonfocal. SKIN: Free of any rashes or bruises. Feels warm and dry to touch. PSYCHIATRIC: Normal affect. IMPRESSION AND PLAN: 1. Acute renal insufficiency with chronic kidney disease. The patient's disease has progressed so f ar away that she needs to be started on hemodialysis now. Dr. Srivastava from General Surgery has been c onsulted and he has seen the patient for possible hemodialysis catheter placement. There is planned right arm primary fistula dialysis graft and placement of hemodialysis catheter, possible central doris e for later today. The patient will be kept n.p.o. We will restart her home medication and repeat h er renal function and continue to monitor on a daily basis. 2. Chronic kidney disease/end-stage renal disease. Hemodialysis to be initiated as above. The lila ent will be restarted on her prednisone and will continue the rituximab as an outpatient. 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 Monitor renal fun ction and avoid any nephrotoxic medications. 3. Hypertension. Restart her home medication of nifedipine and Coreg. 4. Normocytic anemia likely secondary to chronic kidney disease. We will restart her on erythropoie tin while she is here. Continue ferrous sulfate for now. 5. Thrombocytopenia, likely secondary to chronic kidney disease. Monitor closely. She will be on h eparin for DVT prophylaxis, so we will monitor her platelet count on a daily basis. No evidence of a ny active bleed at this time. 6. Code status: FULL CODE. Discussed with the patient. 7. Deep venous thrombosis and gastrointestinal prophylaxis. 8. P.r.n. medication orders and continue supportive care. 9. Dementia. Continue with Namenda. DISPOSITION: Ms. Prado is currently being admitted for starting of the hemodialysis as she has wors ening kidney disease, which is chronic in nature. Estimated length of stay at this time is 2-3 midni ghts that will require placement and starting of a dialysis catheter and hemodialysis. She will also need set up of outpatient dialysis. Further management will depend upon her clinical course.
[2018-05-28 11:47] LABS: Anion Gap 17 mmol/L (10-20); BUN (Urea Nitrogen) 108 mg/dL (9.8-20.1); Calc. Creatinine Clearance 9 mL/min (70-130); Carbon Dioxide 27 mmol/L (23-31); Chloride 110 mmol/L (98-107); Estimated GFR-MDRD 9; Glucose 91 mg/dL (80-115); Potassium 3.3 mmol/L (3.5-5.1); Sodium 151 mmol/L (136-145)
[2018-05-28 12:08] LABS: HBSAB Concentration 1.32 mIU/mL; HBSAg Index 0.29 S/CO (0-0.99); Hep B Core Total Ab Non-Reactive (NonReactive); Hep B Core Total Index 0.13 S/CO (0-0.79); Hep B Surf AB Non-Reactive (NonReactive); Hep B Surf Ag Non-Reactive S/CO (NonReactive)
[2018-05-28 12:09] LABS: Hep C IgG Ab Non-Reactive (NonReactive)
--- NOTE | 2018-05-28 12:49 | CON ---
DATE OF CONSULTATION: 05/28/2018 CONSULTING PHYSICIAN: Dr. Marlow. REASON FOR CONSULTATION: Acute kidney injury. REASON FOR ADMISSION: Weakness. HISTORY OF PRESENT ILLNESS: A 68-year-old female with history of ANCA vasculitis, CKD, hype rtension, GERD, coronary artery disease, who came to the hospital with weakness and was found to have elevated creatinine of 5.27, GFR 8. The patient needs dialysis. No fever or chills. No nausea or vomiting. PAST MEDICAL HISTORY: Positive for hypertension, GERD, hypothyroidism, chronic kidney disease, coron abby artery disease. PAST SURGICAL HISTORY: AAA repair, nephrolithiasis, and cholecystectomy. HOME MEDICATIONS: Prednisone, Protonix, Namenda, levothyroxine, Lasix, ferrous sulfate, Plavix, carv edilol, calcitriol, Lipitor, aspirin. ALLERGIES: No known drug allergies. SOCIAL HISTORY: No smoking, alcohol, or illicit drug abuse. FAMILY HISTORY: No history of any kidney disease. REVIEW OF SYSTEMS: The following complete review of systems was negative, unless otherwise mentioned in the HPI or below: Constitutional: Weight loss or gain, ability to conduct usual activities. Sk in: Rash, itching. Eyes: Double vision, pain. ENT/Mouth: Nose bleeding, neck stiffness, pain, te nderness. Cardiovascular: Palpitations, dyspnea on exertion, orthopnea. Respiratory: Shortness of breath, wheezing, cough, hemoptysis, fever, or night sweats. Gastrointestinal: Poor appetite, abdo stiven pain, heartburn, nausea, vomiting, constipation, or diarrhea. Genitourinary: Urgency, frequen cy, dysuria, nocturia. Musculoskeletal: Pain, swelling. Neurologic/Psychiatric: Anxiety, depressi on. Allergy/Immunologic: Skin rash, bleeding tendency. PHYSICAL EXAMINATION: GENERAL: This is a thin-built female in no apparent distress. VITAL SIGNS: Temperature 98.6, pulse 84, respiratory rate 18, blood pressure 160/76. HEENT: Atraumatic, normocephalic. Oral mucosa is moist. NECK: Supple, no masses. CARDIOVASCULAR: S1 and S2 heard. Rate and rhythm regular. RESPIRATORY: Clear. ABDOMEN: Soft. MUSCULOSKELETAL: 1+ edema. DERMATOLOGIC: No skin rash. NEUROLOGIC: Alert, awake. PSYCHIATRIC: Mood and affect normal. LABORATORY: Hemoglobin is 8.3, potassium is 3.0, BUN is 117, creatinine is 5.2. ASSESSMENT AND PLAN: 1. End-stage renal disease. Plan is to start on dialysis. Patient's creatinine is progressively ge tting worse. 2. Hypertension. Remove fluid with dialysis. 3. Hypokalemia, replace and monitor. 4. Edema, remove fluid. 5. Anemia. We will add Epogen with dialysis. 6. Surgery consult placed. Case management consult placed. We will place PPD and arrange for outpa tient dialysis. We will start on dialysis today after access placement. I appreciate help from Surg jovani. Thank you for the consult.
[2018-05-28 13:02] LABS: HBSAB Concentration 1.66 mIU/mL; Hep B Core Total Ab Non-Reactive (NonReactive); Hep B Core Total Index 0.16 S/CO (0-0.79); Hep B Surf AB Non-Reactive (NonReactive); Hep B Surf Ag Non-Reactive S/CO (NonReactive)
[2018-05-28] MEDS ORDERED: Fentanyl 100 MCG/2 ML VIAL ONE (17:46)
[2018-05-28] MEDS ORDERED: Propofol 500 MG/50 ML VIAL ONE (17:46)
[2018-05-28] MEDS ORDERED: Midazolam HCl 2 mg/2 ml Vial ONE (17:46)
[2018-05-28] MEDS ORDERED: Bupivacaine HCl 0.5%/Epinephrine 1:200,000/PF 30 ml Vial ONE (17:52)
[2018-05-28] MEDS ORDERED: Heparin 5,000 UNITS/ML VIAL ONE (17:52)
[2018-05-28] MEDS ORDERED: Sodium Chloride 0.9% 20 ML ONE (17:52)
[2018-05-28] MEDS ORDERED: Lidocaine 2% 10 ML INJ ONE (17:57)
[2018-05-28] MEDS ORDERED: CEFAZOLIN/Water 2 GM/20 ML SYRINGE ONE (18:03)
[2018-05-28] MEDS ORDERED: Atracurium 100 MG/10 ML VIAL ONE ×2 (18:12→18:18)
[2018-05-28] MEDS ORDERED: Heparin 10,000 UNITS/1 ML VIAL ONE (18:35)
[2018-05-28] MEDS ORDERED: Meperidine HCl/PF 25 MG/ML VIAL SLOW IVP PRN (20:15)
[2018-05-28] MEDS ORDERED: Morphine Sulfate 2 MG/ML SYRINGE SLOW IVP PRN (20:15)
[2018-05-28] MEDS ORDERED: Promethazine HCl 25 MG/ML VIAL IM PRN (20:15)
[2018-05-28] MEDS ORDERED: HYDROmorphone 2 MG/ML VIAL SLOW IVP PRN (20:15)
[2018-05-28] MEDS ORDERED: Promethazine HCl 25 MG/ML VIAL SLOW IVP PRN (20:15)
--- NOTE | 2018-05-28 20:53 | RAD ---
AP VIEW OF THE CHEST: 05/28/18 INDICATION: PACU exam. COMPARISON: Prior exam dated 01/20/18. FINDINGS: There is slight persistent elevation of the left hemidiaphragm. There are two separate new central ve nous catheters. One projects in the region of the right neck base in the region of right IJ with tip of the catheter seen in the region of the SVC. The additional catheter projects in the region of the left IJ, crosses midline and projects in the region of the right atrium. No definite pneumothorax is evident. No acute osseous abnormality is evident. IMPRESSION: Central venous catheters as above. No definite pneumothorax demonstrated. POS: [facility]
[2018-05-28] MEDS: Carvedilol 25 MG TAB PO SCH (21:08)
[2018-05-28] MEDS: Atorvastatin Calcium 20 MG TAB PO SCH (21:08)
--- NOTE | 2018-05-29 03:01 | OP ---
PREOPERATIVE DIAGNOSIS: End-stage renal disease, poor IV access. POSTOPERATIVE DIAGNOSIS: End-stage renal disease, poor IV access. PROCEDURE: Left IJ central line, right IJ hemodialysis catheter, fluoroscopy and ultrasound use, rig ht arm primary fistula inflow proximal radial artery (of excellent caliber without arteriosclerotic d isease) outflow cephalic vein collateral branch laterally towards the forearm ligated, basilic vein o utflow ligated, single outflow cephalic vein. SURGEON: Cheo Srivastava M.D. ANESTHESIA: General. Local of 0.5% Marcaine with epinephrine mixed with 2% Xylocaine, 10 mL PROCEDURE IN DETAIL: The patient was taken to the operating room where under general anesthesia, abd omen, right upper extremity, chest and neck were prepared with ChloraPrep, draped in routine fashion. Local anesthetic infiltrated into skin and subcutaneous tissue about the operative sites. Using ul trasound guidance, the right and left internal jugular veins were cannulated with trocar catheter. J -wire was threaded. Trocar catheter removed after J-wire was placed. Skin incised and enlarged guanakito ply. Stab incision made over the right chest for hemodialysis catheter. Use Selinger technique, tri ple lumen catheter placed and left internal jugular vein and secured with 3-0 nylon suture. Biopatch sterile dressing applied. Each port aspirated blood and flushed with saline solution. On the right side of the neck, the tunneling device, the hemodialysis angiodynamics precurved cuffed tunnel dialysis catheter tunneled between the two incisions, placing the fabric cuff beneath the skin exit site and catheter secured with 2 sutures of 3-0 nylon. Biopatch sterile dressings applied. Sm aller and medium sized dilators placed over the J-wire into the internal jugular vein and removed. D ilator and pull-away sheath placed over the J-wire and superior vena cava and dilator and J-wire jacqui fay. Catheter placed with pull-away sheath and pull-away sheath removed and fluoroscopic catheter wa s noted be in good position as the platysma was approximated with 4-0 Monocryl, skin with subdermal 4 -0 Monocryl and DermaGlue and sterile dressings applied. The each port aspirated blood and flushed w ith saline solution and heparinized saline solution 1000 units heparin per mL indicated volume of the port. Attention was then turned to the right arm. Proximal volar forearm incision longitudinally made belo w the antecubital fossa, carried down the skin and subcutaneous tissue and antecubital vein proximal radial artery dissected free. Brachial radial artery dissected free. The patient was given 5000 uni ts heparin intravenously. Antecubital vein dissected free, perforating branch was small and was liga anthony. The cephalic vein was of good caliber. Antecubital vein on the hand side was ligated with a 3- 0 silk tie divided, spatulated and interrogated with coronary dilators, placing coronary dilators fro m a 2 mm to a 4 mm coronary dilator out the cephalic vein outflow. It was flushed with heparinized s yani solution. The patient was given 5000 units heparin intravenously. After adequate circulation time, the brachial, ulnar, and proximal radial artery clamped with vascular clamps. Longitudinal art eriotomy made sharply and elongated with Bermudez scissors for 2.5 cm anastomosis. Accordingly, spatula ting the antecubital vein and anastomosing antecubital vein end-to-side proximal radial artery with c ontinuous suture of 6-0 Prolene. At completion of anastomosis, vascular clamps were released and the re was good outflow in the cephalic vein interrogated by Doppler. Basilic vein outflow ligated. Sma ll counter incision was made over collateral vein visible just lateral antecubital fossa and this col lateral vein was ligated with a 3-0 silk tie. Good hemostasis was noted. Subcutaneous tissues appro ximated with 3-0 Monocryl, skin with subdermal 4-0 Monocryl and DermaGlue applied.
[2018-05-29] MEDS: Levothyroxine Sodium 25 MCG TAB PO SCH (05:56)
[2018-05-29] MEDS: Acetaminophen 325 MG TAB PO PRN ×2 (05:57→12:36)
[2018-05-29 06:31] LABS: #Lymphocytes 0.6 thou/uL (1.20-3.40); #Monocytes 0.5 thou/uL (0.11-0.59); #Neutrophils 4.5 thou/uL (1.40-6.50); %Basophils 0.1 % (0.0-1.0); %Eosinophils 0.3 % (0.0-10.0); %Lymphocytes 11.2 % (21.0-51.0); %Monocytes 8.1 % (0.0-10.0); %Neutrophils 80.2 % (42.0-75.0); Hemoglobin 7.2 g/dL (12.0-16.0); Mean Corpuscular Hemoglobin 32.2 pg (27.0-31.0); Mean Corpuscular Volume 94.5 fL (78.0-98.0); Platelet Count 75 thou/uL (130-400); RBC Distribution Width 14.2 % (11.5-14.5); Red Blood Cell (RBC) Count 2.25 mill/uL (4.20-5.40); White Blood Cell (WBC) Count 5.6 thou/uL (4.8-10.8)
[2018-05-29 06:38] LABS: Anion Gap 13 mmol/L (10-20); BUN (Urea Nitrogen) 60 mg/dL (9.8-20.1); Calc. Creatinine Clearance 14 mL/min (70-130); Calcium 6.6 mg/dL (7.8-10.44); Carbon Dioxide 30 mmol/L (23-31); Chloride 108 mmol/L (98-107); Estimated GFR-MDRD 16; Glucose 105 mg/dL (80-115); Potassium 4.1 mmol/L (3.5-5.1); Sodium 147 mmol/L (136-145)
[2018-05-29] MEDS: NIFEdipine XL 60 MG TAB PO SCH (08:09)
[2018-05-29] MEDS: Carvedilol 25 MG TAB PO SCH ×2 (08:09→20:20)
[2018-05-29] MEDS: predniSONE 20 MG TAB PO SCH (08:10)
[2018-05-29] MEDS ORDERED: Vancomycin HCl 1 GM in Premix Bag 1 BAG IVPB SCH (09:00)
[2018-05-29] MEDS ORDERED: Calcitriol 0.25 MCG CAP PO SCH (09:00)
--- NOTE | 2018-05-29 10:12 | PRG ---
DATE OF SERVICE: 05/29/2018 SUBJECTIVE: Patient is doing well today. She dialyzed last night. She feels somewhat better. She has a small hematoma in her proximal forearm, it feels better this morning. I have recommended ice w rap to be applied into distal upper arm. She can remove this to shower. This will provide some pres sure and some symptomatic relief. She has a good thrill and bruit in her right upper arm cephalic ve in fistula. Hemodialysis catheter looks good. Central line can be removed prior to discharge and ca n be used this hospitalization to protect her veins. IV blood draws should be drawn through this. A t this point, she should exercise her right arm. I will see her in my office in 2-3 weeks and she wi ll continue to use her hemodialysis catheter for dialysis access.
--- NOTE | 2018-05-29 12:11 | PRG ---
DATE OF SERVICE: 05/29/2018 SUBJECTIVE: Patient was seen and examined at bedside and overnight events noted. Patient denies any shortness of breath or chest pain or palpitation. No history of nausea or vomiting or diarrhea or fever or chills or cramps. OBJECTIVE: GENERAL: A thin-built female in no apparent distress. VITAL SIGNS: Temperature 98.1, pulse 72, respiratory rate 18, blood pressure 144/72. HEENT: Atraumatic, normocephalic. Oral mucosa is moist. NECK: Supple. CARDIOVASCULAR: S1 and S2 heard. Rate and rhythm regular. RESPIRATORY: Clear to auscultation. GASTROINTESTINAL: Abdomen is soft. MUSCULOSKELETAL: No tenderness. No edema. DERMATOLOGIC: No skin rash. NEUROLOGIC: Alert and awake and oriented x3. No focal neurologic deficits. Moving all the extremit ies. PSYCHIATRIC: Mood and affect normal. LABORATORY DATA: Potassium is 4.1, BUN is 60, creatinine is 2.9. ASSESSMENT AND PLAN: 1. End-stage renal disease, started on hemodialysis yesterday. I appreciate help from Surgery for a ccess placement. We will have dialysis today, same hours like yesterday, two hours, and they will co ntinue dialysis Sunday, Sunday, and Sunday. Case management contacted for outpatient dialysis yoni cement. PPD placed. 2. Hypertension, much better with dialysis. 3. Edema, improved. 4. Hypokalemia, stable. 5. Anemia. We will continue Epogen with dialysis. 6. We will continue on dialysis as tolerated. We will follow.
--- NOTE | 2018-05-29 12:18 | PDOC.PN ---
- Subjective Encounter Start Date: 05/29/18 Encounter Start Time: 12:17 Subjective: feels well. had hematoma at site of fistula,better now -: no N/V/Abd pain/CP/SOB - Objective Resuscitation Status: Resuscitation Status FULL:Full Resuscitation MAR Reviewed: Yes Vital Signs & Weight: Vital Signs (12 hours) Temp Pulse Resp BP BP Pulse Ox 05/29/18 08:09 72 144/72 H 05/29/18 08:00 98.1 F 72 16 144/72 H 94 L Weight Admit Weight 107 lb 1.6 oz Weight 107 lb 1.6 oz I&O: 05/28/18 05/29/18 05/30/18 06:59 06:59 06:59 Intake Total 480 150 Output Total 500 Balance -20 150 Result Diagrams: 05/29/18 06:14 05/29/18 06:14 Additional Labs: Accuchecks 05/28/18 17:24 POC Glucose 135 H Laboratory Tests 05/28/18 11:13 Hep Bs Antigen Non-Reactive Hep Bs Antibody Non-Reactive Hep Bs Antibody Index 1.32 Hep B Core Total Ab Non-Reactive Hepatitis C Antibody Non-Reactive labs reviewed Phys Exam - Physical Examination Constitutional: NAD HEENT: PERRLA, moist MMs, sclera anicteric, oral pharynx no lesions Neck: no nodes, no JVD, supple, full ROM Respiratory: no wheezing, no rales, no rhonchi, clear to auscultation bilateral Cardiovascular: RRR, no significant murmur, no rub Gastrointestinal: soft, non-tender, no distention, positive bowel sounds Musculoskeletal: no edema, pulses present Neurological: non-focal, normal sensation, moves all 4 limbs Psychiatric: normal affect, A&O x 3 Skin: no rash Dx/Plan (1) Acute kidney injury superimposed on CKD Code(s): N17.9 - ACUTE KIDNEY FAILURE, UNSPECIFIED; N18.9 - CHRONIC KIDNEY DISEASE, UNSPECIFIED Status: Acute (2) Hypokalemia Code(s): E87.6 - HYPOKALEMIA Status: Acute (3) Hematoma of arm Status: Acute Qualifiers: Laterality: right Comment: monitor.pressure bandage.Hold BID Heparin.Monitor H/H (4) ESRD (end stage renal disease) Code(s): N18.6 - END STAGE RENAL DISEASE Status: Acute (5) PR3 ANCA antibodies present Code(s): R76.8 - OTHER SPECIFIED ABNORMAL IMMUNOLOGICAL FINDINGS IN SERUM Status: Chronic - Plan plan discussed w/ family, out of bed/ambulate, DVT proph w/SCDs Hemodialysis initiated.done yesterday and will get done today -: monitor labs. -: home meds as below.Hemodynamically stable -: OP HD set up in progress * . Review of Systems - Review of Systems Constitutional: negative: fever, chills, sweats, weakness, malaise, other ENT: negative: Ear Pain, Ear Discharge, Nose Pain, Nose Discharge, Nose Congestion, Mouth Pain, Mouth Swelling, Throat Pain, Throat Swelling, Other Respiratory: negative: Cough, Dry, Shortness of Breath, Hemoptysis, SOB with Excertion, Pleuritic Pain, Sputum, Wheezing Cardiovascular: negative: chest pain, palpitations, orthopnea, paroxysmal nocturnal dyspnea, edema, light headedness, other Gastrointestinal: negative: Nausea, Vomiting, Abdominal Pain, Diarrhea, Constipation, Melena, Hematochezia, Other Genitourinary: negative: Dysuria, Frequency, Incontinence, Hematuria, Retention , Other Musculoskeletal: negative: Neck Pain, Shoulder Pain, Arm Pain, Back Pain, Hand Pain, Leg Pain, Foot Pain, Other Skin: negative: Rash, Lesions, Constantine, Bruising, Other Neurological: negative: Weakness, Numbness, Incoordination, Change in Speech, Confusion, Seizures, Other - Medications/Allergies Allergies/Adverse Reactions: Allergies Allergy/AdvReac Type Severity Reaction Status Date / Time No Known Allergies Allergy Verified 05/28/18 00:17 Medications: Current Medications Acetaminophen (Tylenol) 650 mg PO Q4H PRN PRN Reason: Headache/Fever or Pain Last Admin: 05/29/18 05:57 Dose: 650 mg Al Hydroxide/Mg Hydroxide (Maalox) 30 ml PO Q6H PRN PRN Reason: Heartburn or Indigestion Atorvastatin Calcium (Lipitor) 20 mg PO HS [facility] Last Admin: 05/28/18 21:08 Dose: 20 mg Benzonatate (Tessalon) 100 mg PO Q4H PRN PRN Reason: Cough Bisacodyl (Dulcolax) 10 mg PO DAILYPRN PRN PRN Reason: Constipation Calcium Carbonate (Tums) 1,000 mg PO Q4H PRN PRN Reason: Heartburn or Indigestion Carvedilol (Coreg) 25 mg PO BID [facility] Last Admin: 05/29/18 08:09 Dose: 25 mg Cefazolin Sodium (Ancef) 2 gm SLOW IVP ONCALL-OR [facility] Clonidine (Catapres) 0.1 mg PO Q4H PRN PRN Reason: Systolic BP > 160 Epoetin Eric (Procrit) 7,500 units IVP MoWeFr [facility] Guaifenesin (Robitussin Sf) 200 mg PO Q4H PRN PRN Reason: Cough Heparin Sodium (Porcine) (Heparin) 5,000 units SC BID [facility] Last Admin: 05/28/18 21:08 Dose: Not Given Hydralazine HCl (Apresoline) 10 mg SLOW IVP Q4H PRN PRN Reason: Systolic BP > 170 Levothyroxine Sodium (Synthroid) 25 mcg PO 0600 [facility] Last Admin: 05/29/18 05:56 Dose: 25 mcg Loratadine (Claritin) 10 mg PO DAILYPRN PRN PRN Reason: Sinus Symptoms Lorazepam (Ativan) 1 mg PO Q4H PRN PRN Reason: Anxiety/Agitation Memantine (Namenda) 5 mg PO BID [facility] Last Admin: 05/29/18 08:10 Dose: 5 mg Nifedipine (Procardia Xl) 60 mg PO DAILY [facility] Last Admin: 05/29/18 08:09 Dose: 60 mg Nitroglycerin (Nitrostat) 0.4 mg SL Q5MIN PRN PRN Reason: Chest Pain Read Ppd Test Site 0 each PO 1100 [facility] Stop: 05/31/18 11:01 Ondansetron HCl (Zofran) 4 mg IVP Q6H PRN PRN Reason: Nausea/Vomiting Pantoprazole Sodium (Protonix) 40 mg PO DAILY [facility] Last Admin: 05/29/18 08:10 Dose: 40 mg Prednisone (Prednisone) 20 mg PO QAM-WM [facility] Last Admin: 05/29/18 08:10 Dose: 20 mg Senna (Senokot) 2 tab PO HSPRN PRN PRN Reason: Constipation Sodium Chloride ([place] Nasal [place] 0.65%) 0 ml EA NARE PRN PRN PRN Reason: Nasal Dryness Sodium Chloride (Flush - Normal Saline) 10 ml IVF Q12HR [facility] Last Admin: 05/29/18 08:10 Dose: 10 ml Sodium Chloride (Flush - Normal Saline) 10 ml IVF PRN PRN PRN Reason: Saline Flush Last Admin: 05/28/18 10:33 Dose: 10 ml Tramadol HCl (Ultram) 50 mg PO Q4H PRN PRN Reason: Moderate Pain (4-6)
[2018-05-29] MEDS: traMADol HCl 50 MG TAB PO PRN ×2 (14:55→20:20)
[2018-05-29] MEDS: Heparin 5,000 UNITS/ML VIAL SC SCH ×2 (15:31→20:20)
[2018-05-29] MEDS: Epoetin (ESRD) 20,000 UNITS/ML IVP SCH (18:20)
[2018-05-29] MEDS: Atorvastatin Calcium 20 MG TAB PO SCH (20:20)
[2018-05-30] MEDS: Levothyroxine Sodium 25 MCG TAB PO SCH (05:25)
[2018-05-30 06:17] LABS: Anion Gap 12 mmol/L (10-20); BUN (Urea Nitrogen) 42 mg/dL (9.8-20.1); Calc. Creatinine Clearance 14 mL/min (70-130); Calcium 6.8 mg/dL (7.8-10.44); Carbon Dioxide 29 mmol/L (23-31); Chloride 106 mmol/L (98-107); Estimated GFR-MDRD 16; Glucose 102 mg/dL (80-115); Potassium 3.9 mmol/L (3.5-5.1); Sodium 143 mmol/L (136-145)
[2018-05-30 06:19] LABS: #Eosinphils 0.1 thou/uL (0.0-0.7); #Lymphocytes 0.8 thou/uL (1.20-3.40); #Monocytes 0.3 thou/uL (0.11-0.59); #Neutrophils 4.5 thou/uL (1.40-6.50); %Basophils 0.2 % (0.0-1.0); %Lymphocytes 14.2 % (21.0-51.0); %Monocytes 5.6 % (0.0-10.0); %Neutrophils 79.1 % (42.0-75.0); Mean Corpuscular HGB CONC 33.4 g/dL (32.0-36.0); Mean Corpuscular Hemoglobin 31.7 pg (27.0-31.0); Mean Corpuscular Volume 94.9 fL (78.0-98.0); Mean Platelet Volume 10.3 fL (7.4-10.4); Platelet Count 74 thou/uL (130-400); RBC Distribution Width 14.1 % (11.5-14.5); Red Blood Cell (RBC) Count 2.19 mill/uL (4.20-5.40); White Blood Cell (WBC) Count 5.6 thou/uL (4.8-10.8)
[2018-05-30] MEDS: Carvedilol 25 MG TAB PO SCH ×2 (08:11→21:53)
[2018-05-30] MEDS: predniSONE 20 MG TAB PO SCH (08:12)
[2018-05-30] MEDS: NIFEdipine XL 60 MG TAB PO SCH (08:13)
[2018-05-30] MEDS: Heparin 5,000 UNITS/ML VIAL SC SCH ×2 (08:13→21:53)
[2018-05-30] MEDS: READ PPD TEST SITE PO SCH (11:33)
--- NOTE | 2018-05-30 14:24 | PDOC.PN ---
- Subjective Encounter Start Date: 05/30/18 Encounter Start Time: 14:22 Subjective: feels much better. HD X2 already done -: reports the fistula pain & swelling better -: no CP/SOB.no N/V/D - Objective Resuscitation Status: Resuscitation Status FULL:Full Resuscitation MAR Reviewed: Yes Vital Signs & Weight: Vital Signs (12 hours) Temp Pulse Resp BP BP Pulse Ox 05/30/18 08:13 72 131/71 05/30/18 08:00 98.2 F 72 16 96 05/30/18 07:27 98.2 F 68 16 124/71 96 Weight Admit Weight 107 lb 1.6 oz Weight 107 lb 1.6 oz I&O: 05/29/18 05/30/18 05/31/18 06:59 06:59 06:59 Intake Total 150 905 Output Total 1200 Balance 150 -295 Result Diagrams: 05/30/18 05:16 05/30/18 05:16 Additional Labs: Laboratory Tests 05/27/18 05/27/18 05/28/18 16:13 16:13 11:13 Hgb 8.3 L Creatinine 5.27 H 4.66 H 05/29/18 05/29/18 05/30/18 06:14 06:14 05:16 Hgb 7.2 L Creatinine 2.93 H 2.99 H 05/30/18 05:16 Hgb 7.0 L Creatinine labs reviewed Phys Exam - Physical Examination Constitutional: NAD pale HEENT: PERRLA, moist MMs, sclera anicteric, oral pharynx no lesions Neck: no nodes, no JVD, supple, full ROM Respiratory: no wheezing, no rales, no rhonchi, clear to auscultation bilateral Cardiovascular: RRR, no significant murmur Gastrointestinal: soft, non-tender, no distention, positive bowel sounds Musculoskeletal: no edema, pulses present mild swelling around R arm fitula,small bruise Neurological: non-focal, normal sensation, moves all 4 limbs Psychiatric: normal affect, A&O x 3 Skin: no rash Dx/Plan (1) Acute kidney injury superimposed on CKD Code(s): N17.9 - ACUTE KIDNEY FAILURE, UNSPECIFIED; N18.9 - CHRONIC KIDNEY DISEASE, UNSPECIFIED Status: Acute Comment: started on HD this admission (2) Hypokalemia Code(s): E87.6 - HYPOKALEMIA Status: Acute (3) Hematoma of arm Status: Acute Qualifiers: Laterality: right Comment: monitor.pressure bandage.Hold BID Heparin.Monitor H/H (4) ESRD (end stage renal disease) Code(s): N18.6 - END STAGE RENAL DISEASE Status: Acute (5) PR3 ANCA antibodies present Code(s): R76.8 - OTHER SPECIFIED ABNORMAL IMMUNOLOGICAL FINDINGS IN SERUM Status: Chronic (6) Anemia in CKD (chronic kidney disease) Code(s): N18.9 - CHRONIC KIDNEY DISEASE, UNSPECIFIED; D63.1 - ANEMIA IN CHRONIC KIDNEY DISEASE Status: Chronic Qualifiers: Chronic kidney disease stage: on chronic dialysis Qualified Code(s): N18.6 - End stage renal disease; D63.1 - Anemia in chronic kidney disease; Z99.2 - Dependence on renal dialysis Comment: Continue Epogen. - Plan plan discussed w/ family, PT/OT, out of bed/ambulate, DVT proph w/SCDs discussed with Nephrology.will transfuse 1 unit PRBC w HD tomorrow -: OP HD set up in process. -: AM labs. hemodynamically stable. -: cont PO steroids ,OP Rituximab per rheumatology/nephrology -: DC when Outpt HD is set up * . Review of Systems - Review of Systems Constitutional: weakness. negative: fever, chills, sweats, malaise, other Respiratory: negative: Cough, Dry, Shortness of Breath, Hemoptysis, SOB with Excertion, Pleuritic Pain, Sputum, Wheezing Cardiovascular: negative: chest pain, palpitations, orthopnea, paroxysmal nocturnal dyspnea, edema, light headedness, other Gastrointestinal: negative: Nausea, Vomiting, Abdominal Pain, Diarrhea, Constipation, Melena, Hematochezia, Other Genitourinary: negative: Dysuria, Frequency, Incontinence, Hematuria, Retention , Other Musculoskeletal: negative: Neck Pain, Shoulder Pain, Arm Pain, Back Pain, Hand Pain, Leg Pain, Foot Pain, Other Skin: negative: Rash, Lesions, [place], Bruising, Other Neurological: negative: Weakness, Numbness, Incoordination, Change in Speech, Confusion, Seizures, Other - Medications/Allergies Allergies/Adverse Reactions: Allergies Allergy/AdvReac Type Severity Reaction Status Date / Time No Known Allergies Allergy Verified 05/28/18 00:17 Medications: Current Medications Acetaminophen (Tylenol) 650 mg PO Q4H PRN PRN Reason: Headache/Fever or Pain Last Admin: 05/29/18 12:36 Dose: 650 mg Al Hydroxide/Mg Hydroxide (Maalox) 30 ml PO Q6H PRN PRN Reason: Heartburn or Indigestion Atorvastatin Calcium (Lipitor) 20 mg PO HS [facility] Last Admin: 05/29/18 20:20 Dose: 20 mg Benzonatate (Tessalon) 100 mg PO Q4H PRN PRN Reason: Cough Bisacodyl (Dulcolax) 10 mg PO DAILYPRN PRN PRN Reason: Constipation Calcium Carbonate (Tums) 1,000 mg PO Q4H PRN PRN Reason: Heartburn or Indigestion Carvedilol (Coreg) 25 mg PO BID [facility] Last Admin: 05/30/18 08:11 Dose: 25 mg Cefazolin Sodium (Ancef) 2 gm SLOW IVP ONCALL-OR [facility] Clonidine (Catapres) 0.1 mg PO Q4H PRN PRN Reason: Systolic BP > 160 Epoetin Eric (Procrit) 7,500 units IVP MoWeFr [facility] Last Admin: 05/29/18 18:20 Dose: Not Given Guaifenesin (Robitussin Sf) 200 mg PO Q4H PRN PRN Reason: Cough Heparin Sodium (Porcine) (Heparin) 5,000 units SC BID [facility] Last Admin: 05/30/18 08:13 Dose: Not Given Hydralazine HCl (Apresoline) 10 mg SLOW IVP Q4H PRN PRN Reason: Systolic BP > 170 Levothyroxine Sodium (Synthroid) 25 mcg PO 0600 [facility] Last Admin: 05/30/18 05:25 Dose: 25 mcg Loratadine (Claritin) 10 mg PO DAILYPRN PRN PRN Reason: Sinus Symptoms Lorazepam (Ativan) 1 mg PO Q4H PRN PRN Reason: Anxiety/Agitation Memantine (Namenda) 5 mg PO BID [facility] Last Admin: 05/30/18 08:12 Dose: 5 mg Nifedipine (Procardia Xl) 60 mg PO DAILY [facility] Last Admin: 05/30/18 08:13 Dose: 60 mg Nitroglycerin (Nitrostat) 0.4 mg SL Q5MIN PRN PRN Reason: Chest Pain Read Ppd Test Site 0 each PO 1100 [facility] Stop: 05/31/18 11:01 Last Admin: 05/30/18 11:33 Dose: 1 each Ondansetron HCl (Zofran) 4 mg IVP Q6H PRN PRN Reason: Nausea/Vomiting Pantoprazole Sodium (Protonix) 40 mg PO DAILY [facility] Last Admin: 05/30/18 08:12 Dose: 40 mg Prednisone (Prednisone) 20 mg PO QAM-WM [facility] Last Admin: 05/30/18 08:12 Dose: 20 mg Senna (Senokot) 2 tab PO HSPRN PRN PRN Reason: Constipation Sodium Chloride ([place] Nasal [place] 0.65%) 0 ml EA NARE PRN PRN PRN Reason: Nasal Dryness Sodium Chloride (Flush - Normal Saline) 10 ml IVF Q12HR [facility] Last Admin: 05/30/18 08:14 Dose: 10 ml Sodium Chloride (Flush - Normal Saline) 10 ml IVF PRN PRN PRN Reason: Saline Flush Last Admin: 05/28/18 10:33 Dose: 10 ml Tramadol HCl (Ultram) 50 mg PO Q4H PRN PRN Reason: Moderate Pain (4-6) Last Admin: 05/29/18 20:20 Dose: 50 mg
--- NOTE | 2018-05-30 17:51 | PRG ---
DATE OF SERVICE: 05/30/2018 SUBJECTIVE: Patient was seen and examined at bedside and overnight events noted. Patient denies any shortness of breath or chest pain or palpitation. No history of nausea or vomiting or diarrhea or f ever or chills or cramps. OBJECTIVE: GENERAL: This is a thin-built female in no apparent distress. VITAL SIGNS: Temperature 98.2, pulse 72, respiratory rate 16, blood pressure 124/71. HEENT: Atraumatic, normocephalic, Oral mucosa is moist NECK: Supple CARDIOVASCULAR: S1, S2 heard. Rate and rhythm regular. RESPIRATORY: Clear to auscultation. GASTROINTESTINAL: Abdomen is soft. MUSCULOSKELETAL: No tenderness, no edema. DERMATOLOGIC: No skin rash. NEUROLOGIC: Alert, awake, and oriented x3. No focal neurologic deficits. Moving all the extremitie s. PSYCHIATRIC: Mood and affect normal. LABORATORY DATA: Potassium 3.9, BUN is 42, creatinine is 2.9, hemoglobin is 7. ASSESSMENT AND PLAN: 1. End-stage renal disease, started on hemodialysis, tolerating well. Follow up with case managemen t for outpatient placement. 2. Hypertension, better with dialysis and controlled. 3. Anemia. Plan to transfuse tomorrow with dialysis and Epogen. We will give 1 unit of PRBC with d ialysis tomorrow. 4. ANCA vasculitis. Continue home medications. Follow up with Rheumatology. 5. Edema, improved. 6. Hypokalemia, stable. The patient is feeling better, tolerating dialysis well. Follow up with case management for outpatie nt placement.
[2018-05-30] MEDS: Atorvastatin Calcium 20 MG TAB PO SCH (21:53)
[2018-05-31 05:00] LABS: Hemoglobin 6.7 g/dL (12.0-16.0)
[2018-05-31 05:10] LABS: Anion Gap 13 mmol/L (10-20); BUN (Urea Nitrogen) 56 mg/dL (9.8-20.1); Calc. Creatinine Clearance 11 mL/min (70-130); Calcium 6.4 mg/dL (7.8-10.44); Carbon Dioxide 29 mmol/L (23-31); Chloride 100 mmol/L (98-107); Estimated GFR-MDRD 12; Glucose 102 mg/dL (80-115); Potassium 4.1 mmol/L (3.5-5.1); Sodium 138 mmol/L (136-145)
[2018-05-31] MEDS: Levothyroxine Sodium 25 MCG TAB PO SCH (06:00)
[2018-05-31 07:17] VITALS: BP 135/73
[2018-05-31] MEDS: Heparin 5,000 UNITS/ML VIAL SC SCH (07:33)
[2018-05-31] MEDS: predniSONE 20 MG TAB PO SCH (08:05)
[2018-05-31] MEDS: NIFEdipine XL 60 MG TAB PO SCH (08:05)
[2018-05-31] MEDS: Carvedilol 25 MG TAB PO SCH ×2 (08:12→17:52)
[2018-05-31] MEDS ORDERED: Calcium Carbonate 500 MG ChewTAB PO SCH (09:00)
[2018-05-31] MEDS ORDERED: Folic Acid/Vit B Comp W-C PO SCH (09:00)
[2018-05-31] MEDS: READ PPD TEST SITE PO SCH (10:06)
--- NOTE | 2018-05-31 10:33 | PRG ---
DATE OF SERVICE: 05/31/2018 SUBJECTIVE: Patient was seen and examined at bedside and overnight events noted. Patient denies any shortness of breath or chest pain or palpitation. No history of nausea or vomiting or diarrhea or f ever or chills or cramps. OBJECTIVE: GENERAL: This is a thin built female in no apparent distress. VITAL SIGNS: Temperature 98.2, pulse 79, respiratory rate 16, blood pressure 175/73. HEENT: Atraumatic, normocephalic. Oral mucosa is moist. NECK: Supple. CARDIOVASCULAR: S1, S2 heard. Rate and rhythm regular. RESPIRATORY: Clear to auscultation. GASTROINTESTINAL: Abdomen is soft. MUSCULOSKELETAL: No tenderness. No edema. DERMATOLOGIC: No skin rash. NEUROLOGIC: Alert and awake and oriented x3. No focal neurologic deficits. Moving all the extremiti es. PSYCHIATRIC: Mood and affect normal. LABORATORY DATA: Potassium 4.1, BUN 56, creatinine is 3.8. ASSESSMENT AND PLAN: 1. End-stage renal disease. We will have dialysis today, Sunday, Sunday, and Sunday. Follow wit h case management for outpatient placement. Seems like she is ready for outpatient placement. 2. Anemia. We will transfuse 1 unit of blood with dialysis and continue. 3. Hypertension, stable. 4. Edema, improved. 5. Vasculitis. Continue to follow up with Rheumatology and medications.
--- NOTE | 2018-05-31 12:02 | PDOC.PN ---
- Subjective Encounter Start Date: 05/31/18 Encounter Start Time: 09:00 -: old records requested/rev Patient seen and examined. No new complaints. No overnight events - Objective Resuscitation Status: Resuscitation Status FULL:Full Resuscitation MAR Reviewed: Yes Vital Signs & Weight: Vital Signs (12 hours) Temp Pulse Resp BP Pulse Ox 05/31/18 08:00 98.2 F 79 16 05/31/18 07:17 98.2 F 79 16 135/73 93 L 05/31/18 05:41 98.1 F 79 16 147/76 H 92 L Weight Admit Weight 107 lb 1.6 oz Weight 110 lb 3.698 oz I&O: 05/30/18 05/31/18 06/01/18 06:59 06:59 06:59 Intake Total 905 Output Total 1200 Balance -295 Result Diagrams: 05/31/18 04:45 05/31/18 04:45 Phys Exam - Physical Examination Constitutional: NAD HEENT: PERRLA, moist MMs, sclera anicteric Neck: no JVD, supple Respiratory: no wheezing, no rales, no rhonchi Cardiovascular: RRR, no significant murmur, no rub Gastrointestinal: soft, non-tender, no distention, positive bowel sounds Musculoskeletal: no edema, pulses present Neurological: non-focal, normal sensation Lymphatic: no nodes Psychiatric: normal affect Skin: no rash, normal turgor Dx/Plan (1) ESRD needing dialysis Code(s): N18.6 - END STAGE RENAL DISEASE; Z99.2 - DEPENDENCE ON RENAL DIALYSIS Status: Acute (2) Hematoma of arm Status: Acute Qualifiers: Laterality: right Comment: monitor.pressure bandage.Hold BID Heparin.Monitor H/H (3) Hypocalcemia Code(s): E83.51 - HYPOCALCEMIA Status: Acute (4) Hypokalemia Code(s): E87.6 - HYPOKALEMIA Status: Acute (5) Thrombocytopenia Code(s): D69.6 - THROMBOCYTOPENIA, UNSPECIFIED Status: Acute (6) ANCA-associated vasculitis Code(s): I77.6 - ARTERITIS, UNSPECIFIED Status: Chronic (7) Anemia of renal disease Code(s): D63.1 - ANEMIA IN CHRONIC KIDNEY DISEASE Status: Chronic (8) Dementia Code(s): F03.90 - UNSPECIFIED DEMENTIA WITHOUT BEHAVIORAL DISTURBANCE Status: Chronic (9) Dyslipidemia Code(s): E78.5 - HYPERLIPIDEMIA, UNSPECIFIED Status: Chronic (10) GERD (gastroesophageal reflux disease) Code(s): K21.9 - GASTRO-ESOPHAGEAL REFLUX DISEASE WITHOUT ESOPHAGITIS Status: Chronic (11) Hypothyroidism Code(s): E03.9 - HYPOTHYROIDISM, UNSPECIFIED Status: Chronic (12) Secondary hyperparathyroidism of renal origin Code(s): N25.81 - SECONDARY HYPERPARATHYROIDISM OF RENAL ORIGIN Status: Chronic (13) HTN (hypertension) Code(s): I10 - ESSENTIAL (PRIMARY) HYPERTENSION Status: Chronic - Plan cont current plan of care, plan discussed w/ family * medication reviewed as below * supportive treatment * outpt HD arranged * stable for discharge. Review of Systems - Review of Systems Eyes: negative: Pain, Vision Change, Conjunctivae Inflammation, Eyelid Inflammation, Redness, Other ENT: negative: Ear Pain, Ear Discharge, Nose Pain, Nose Discharge, Nose Congestion, Mouth Pain, Mouth Swelling, Throat Pain, Throat Swelling, Other Respiratory: negative: Cough, Dry, Shortness of Breath, Hemoptysis, SOB with Excertion, Pleuritic Pain, Sputum, Wheezing Cardiovascular: negative: chest pain, palpitations, orthopnea, paroxysmal nocturnal dyspnea, edema, light headedness, other Gastrointestinal: negative: Nausea, Vomiting, Abdominal Pain, Diarrhea, Constipation, Melena, Hematochezia, Other Genitourinary: negative: Dysuria, Frequency, Incontinence, Hematuria, Retention , Other Musculoskeletal: negative: Neck Pain, Shoulder Pain, Arm Pain, Back Pain, Hand Pain, Leg Pain, Foot Pain, Other - Medications/Allergies Allergies/Adverse Reactions: Allergies Allergy/AdvReac Type Severity Reaction Status Date / Time No Known Allergies Allergy Verified 05/28/18 00:17 Medications: Current Medications Acetaminophen (Tylenol) 650 mg PO Q4H PRN PRN Reason: Headache/Fever or Pain Last Admin: 05/29/18 12:36 Dose: 650 mg Al Hydroxide/Mg Hydroxide (Maalox) 30 ml PO Q6H PRN PRN Reason: Heartburn or Indigestion Atorvastatin Calcium (Lipitor) 20 mg PO HS [facility] Last Admin: 05/30/18 21:53 Dose: 20 mg Benzonatate (Tessalon) 100 mg PO Q4H PRN PRN Reason: Cough Bisacodyl (Dulcolax) 10 mg PO DAILYPRN PRN PRN Reason: Constipation Calcium Carbonate (Tums) 1,000 mg PO Q4H PRN PRN Reason: Heartburn or Indigestion Calcium Carbonate (Tums) 1,000 mg PO BID [facility] Last Admin: 05/31/18 10:22 Dose: 1,000 mg Carvedilol (Coreg) 25 mg PO BID [facility] Last Admin: 05/31/18 08:12 Dose: Not Given Cefazolin Sodium (Ancef) 2 gm SLOW IVP ONCALL-OR [facility] Clonidine (Catapres) 0.1 mg PO Q4H PRN PRN Reason: Systolic BP > 160 Epoetin Eric (Procrit) 7,500 units IVP MoWeFr [facility] Last Admin: 05/29/18 18:20 Dose: Not Given Ferrous Sulfate (Feosol) 325 mg PO [facility] Guaifenesin (Robitussin Sf) 200 mg PO Q4H PRN PRN Reason: Cough Heparin Sodium (Porcine) (Heparin) 5,000 units SC BID [facility] Last Admin: 05/31/18 07:33 Dose: Not Given Hydralazine HCl (Apresoline) 10 mg SLOW IVP Q4H PRN PRN Reason: Systolic BP > 170 Levothyroxine Sodium (Synthroid) 25 mcg PO 0600 [facility] Last Admin: 05/31/18 06:00 Dose: 25 mcg Loratadine (Claritin) 10 mg PO DAILYPRN PRN PRN Reason: Sinus Symptoms Lorazepam (Ativan) 1 mg PO Q4H PRN PRN Reason: Anxiety/Agitation Memantine (Namenda) 5 mg PO BID [facility] Last Admin: 05/31/18 08:05 Dose: 5 mg Nifedipine (Procardia Xl) 60 mg PO DAILY [facility] Last Admin: 05/31/18 08:05 Dose: 60 mg Nitroglycerin (Nitrostat) 0.4 mg SL Q5MIN PRN PRN Reason: Chest Pain Ondansetron HCl (Zofran) 4 mg IVP Q6H PRN PRN Reason: Nausea/Vomiting Pantoprazole Sodium (Protonix) 40 mg PO DAILY [facility] Last Admin: 05/31/18 08:05 Dose: 40 mg Prednisone (Prednisone) 20 mg PO QAM-[facility] Last Admin: 05/31/18 08:05 Dose: 20 mg Senna (Senokot) 2 tab PO HSPRN PRN PRN Reason: Constipation Sodium Chloride ([place] Nasal [place] 0.65%) 0 ml EA NARE PRN PRN PRN Reason: Nasal Dryness Sodium Chloride (Flush - Normal Saline) 10 ml IVF Q12HR [facility] Last Admin: 05/31/18 08:06 Dose: 10 ml Sodium Chloride (Flush - Normal Saline) 10 ml IVF PRN PRN PRN Reason: Saline Flush Last Admin: 05/28/18 10:33 Dose: 10 ml Tramadol HCl (Ultram) 50 mg PO Q4H PRN PRN Reason: Moderate Pain (4-6) Last Admin: 05/29/18 20:20 Dose: 50 mg Vitamin B Complex/Vit C/Folic Acid (Nephro-Varinder Tablet) 1 tab PO DAILY [facility] Last Admin: 05/31/18 10:23 Dose: 1 tab
--- NOTE | 2018-05-31 12:58 | DIS ---
DATE OF ADMISSION: 05/27/2018 DATE OF DISCHARGE: 05/31/2018 PRIMARY CARE PHYSICIAN: Ellen Lester PA-C. DISCHARGE DISPOSITION: Home. PRIMARY DISCHARGE DIAGNOSES: Acute on chronic kidney failure approach to end-stage renal disease, st arted hemodialysis during this admission. Hypocalcemia due to vitamin D deficiency; hypokalemia, cor rected; hematoma of arm after surgery, resolved; thrombocytopenia, resolved. SECONDARY DISCHARGE DIAGNOSES: Hypertension; secondary hyperparathyroidism of renal origin; hypothyr oidism; anemia of renal disease; ANCA associated vasculitis; gastroesophageal reflux disease; chronic kidney disease, stage IV; dementia; dyslipidemia; anemia of renal disease. PRIMARY PROCEDURE/OPERATION: Tunneled hemodialysis catheter by Dr. Srivastava. AV fistula, central line placement. RADIOLOGICAL INVESTIGATION: Marking ultrasound, chest x-ray. SIGNIFICANT LABORATORY DATA: Hemoglobin 6.7, WBC 5.6, platelets 74. Sodium 138, creatinine 3.82, vi tamin D 20.9. PTH 459. Urinalysis unremarkable. Hepatitis profile negative. DISCHARGE MEDICATIONS: Lipitor 20 mg p.o. daily; calcitriol 0.25 mcg p.o. Sunday, Sunday, Sunday ; Coreg 25 mg p.o. b.i.d., ferrous sulfate 325 mg p.o. b.i.d.; levothyroxine 25 mcg p.o. daily; Namen da XR one tablet p.o. daily; Procardia-XL 60 mg daily; Protonix 40 mg p.o. daily; Tums 500 mg p.o. t. i.d.; Nephro-Varinder 1 tablet p.o. daily; prednisone 20 mg p.o. daily. CONTRAINDICATIONS: None. CODE STATUS: FULL CODE. INPATIENT CONSULTANTS: Dr. Weaver was following for renal failure. Dr. rSivastava was consulted for di alysis access. TEST RESULTS PENDING ON DISCHARGE: None. ALLERGIES: No known drug allergy. DISCHARGE PLAN: Post hospital, the patient will follow up with primary care physician, Dr. Srivastava as well as Dr. Weaver. HOSPITAL COURSE: A 68-year-old female who has ANCA associated vasculitis and associated nephropathy. She has worsening of renal failure and patient approach to end-stage renal disease. The patient wa s admitted to medical floor. During this admission, the patient was requiring hemodialysis. The pat ient was evaluated by automatic chief while in hospital. Nephrology consulted a general surgeon for jameel lysis access. The patient had a tunneled hemodialysis catheter placement, AV fistula. The patient w as started on hemodialysis during this admission. We adjusted medication as above. Hypocalcemia was related with renal insufficiency and vitamin D deficiency. The patient was started on calcitriol as well as Tums. Rest of medication was continued as per previous while in hospital. The patient has arrangement for outpatient hemodialysis. The patient was given 1 unit of blood transfusion. The pat ient will get Procrit with hemodialysis as an outpatient basis. The patient is seen and examined at bedside today. Please see my progress note from today for furthe r detail.
[2018-05-31 13:36] VITALS: BMI 18.9
[2018-05-31 15:17] VITALS: TEMP 97.5
[2018-05-31] MEDS: Epoetin (ESRD) 20,000 UNITS/ML IVP SCH (17:24)
[2018-05-31] MEDS: traMADol HCl 50 MG TAB PO PRN (17:25)
[2018-05-31] MEDS: Atorvastatin Calcium 20 MG TAB PO SCH (17:53)
[2018-06-01] MEDS ORDERED: Ferrous Sulfate 325 MG TAB PO SCH (08:00)
== END 2018-05-31 18:30 | disposition home or self-care (01) | DRG 682 ==
LOC: ERS 15:52 → 2SW 20:50 → OBSVTOIN 20:50 → T4-B 05-28 13:51
PROVIDERS: ADMIT Hospitalist; ATTEND Hospitalist
PROC: 05HN33Z Insertion of Infusion Device into Left Internal Jugular Vein, Percutaneous Approach (ICD-10-PCS; principal; 2018-05-28)
PROC: B514ZZA Fluoroscopy of Left Jugular Veins, Guidance (ICD-10-PCS; 2018-05-28)
PROC: 5A1D70Z Performance of Urinary Filtration, Intermittent, Less than 6 Hours Per Day (ICD-10-PCS; 2018-05-28)
PROC: 5A1D70Z Performance of Urinary Filtration, Intermittent, Less than 6 Hours Per Day (ICD-10-PCS; 2018-05-28)
PROC: 5A1D70Z Performance of Urinary Filtration, Intermittent, Less than 6 Hours Per Day (ICD-10-PCS; 2018-05-28)
DX: I12.0 Hypertensive chronic kidney disease with stage 5 chronic kidney disease or end stage renal disease (principal); N18.6 End stage renal disease; N17.9 Acute kidney failure, unspecified; M30.0 Polyarteritis nodosa; L76.32 Postprocedural hematoma of skin and subcutaneous tissue following other procedure; Z99.2 Dependence on renal dialysis; D63.1 Anemia in chronic kidney disease; D69.6 Thrombocytopenia, unspecified; F03.90 Unspecified dementia, unspecified severity, without behavioral disturbance, psychotic disturbance, mood disturbance, and anxiety; I77.89 Other specified disorders of arteries and arterioles; E87.6 Hypokalemia; X58.XXXA Exposure to other specified factors, initial encounter; E83.51 Hypocalcemia; E03.9 Hypothyroidism, unspecified; Y84.6 Urinary catheterization as the cause of abnormal reaction of the patient, or of later complication, without mention of misadventure at the time of the procedure
CPT/HCPCS: 36415; 36416; 36430; 71045; 80048; 80053; 81003; 81015; 82306; 83970; 84100; 85014; 85018; 85025; 86580; 86704; 86706; 86803; 86850; 86900; 86901; 87340; 90935; 93005; 93970; A4216; C1752; C1769; G0257; G0365; J0670; J1642; J1644; J2001; J2250; J2405; J2704; J3010; J7506; P9016; Q4081